=== PATIENT | male | born 1940 ===

== ENCOUNTER 2020-06-28 21:46 | Inpatient (IN) | payer MEDICARE, OTHER ==
[~2020-06-28] VITALS: Ht 165.1 cm; Wt 111.6 kg
[2020-06-28] MEDS ORDERED: INSU100V39 (21:59)
[2020-06-28] MEDS ORDERED: INSU100V7 SQ (21:59)
[2020-06-28] MEDS ORDERED: ESCI20TA44 PO (21:59)
[2020-06-28] MEDS ORDERED: CLON1TAB12 PO (21:59)
[2020-06-28] MEDS ORDERED: OLANZAPINE 5 MG TABLET PO ONE (22:00)
[2020-06-28] MEDS ORDERED: OLANZAPINE 5 MG TABLET ONE (22:09)
[2020-06-28] MEDS ORDERED: ASPI81TA31 PO (22:28)
[2020-06-28] MEDS ORDERED: ATOR20TA PO (22:28)
[2020-06-28] MEDS ORDERED: QUET100T PO (22:28)
[2020-06-28] MEDS ORDERED: LISI10TA29 PO (22:28)
[2020-06-28] MEDS ORDERED: FURO-151 PO (22:28)
[2020-06-28] MEDS ORDERED: METO25TA6 PO (22:28)
[2020-06-28] MEDS ORDERED: TAMS0.4C34 PO (22:30)
[2020-06-28] MEDS ORDERED: METF-442 PO (22:30)
[2020-06-28] MEDS ORDERED: POTA20TA10 PO (22:30)
[2020-06-28] MEDS ORDERED: CLOP75TA15 PO (22:30)
--- NOTE | 2020-06-28 23:49 | NUR ---
transfered to MHU via wheelchair
[2020-06-28 23:55] VITALS: BP 149/70
[2020-06-29] MEDS ORDERED: LORAZEPAM 0.5 MG TABLET PO PRN
[2020-06-29] MEDS ORDERED: DEXTROSE 50% 50 ML DISP.SYRIN IV PRN
[2020-06-29] MEDS ORDERED: MAG HYDROX/AL HYDROX/SIMETH 30 ML LIQUID UDC PO PRN
[2020-06-29] MEDS ORDERED: BLOOD SUGAR DIAGNOSTIC 1 EACH STRIP VI ONE
[2020-06-29] MEDS ORDERED: MAGNESIUM HYDROXIDE 30 ML LIQUID UDC PO PRN
[2020-06-29] MEDS: TEMAZEPAM 7.5 MG CAPSULE PO PRN (00:38)
--- NOTE | 2020-06-29 01:33 | NUR ---
PATIENT RECEIVED VIA WHEEL CHAIR FROM ER AT 2350. THE PATIENT IS ALERT/ORIENTED X2 WITH CONFUSION, AGITATED, HYPERVERBAL, EASILY IRRITABLE, AND RESTLESS. THE PATIENT STATED RECEIVED INFLUENZA VACCINE AND WOULD LIKE TO HAVE THE PNEUMOCOCCAL VACCINE. THE PATIENT REFUSED TO SIGN ADMITTING FORMS BECAME AGITATED. THE PATIENT RECEIVED ADVISEMENT AND PATIENT RIGHTS HANDBOOK. THE PATIENT WAS CHECKED FOR CONTRABAND AND BODY ASSESSMENT RENDERED WITH SKIN INTACT. THE PATIENT WAS CHANGED INTO HOSPITAL GOWN AND ORIENTED TO ROOM. SAFE ENVIRONMENT PROVIDED, FREQUENT ROUNDING, AND CLUTTER FREE ENVIRONMENT. BED IN LOWEST POSITION, BED LOCKED, AND BED ALARM ON WHILE IN BED. PT ORDERED UNSTEADY GAIT AND HISTORY OF FALLS.
[2020-06-29] MEDS: BLOOD SUGAR DIAGNOSTIC 1 EACH STRIP VI SCH ×4 (06:32→20:56)
--- NOTE | 2020-06-29 07:07 | NUR ---
SPOKE WITH PATIENT'S IRVIN SALINAS REGARDING ELOY DANIELSONET. PATIENT DID NOT HAVE WALLET UPON ADMISSION. THE PATIENT'S CALLED [facility] IN [place] AND WAS TOLD THAT ELOY'S WALLET WAS IN THEIR SAFE AND SHE WAS NOT ALLOWED TO PARTS SALVAGER HER HUSBANDS WALLET. THE WILL FOLLOW UP WITH [facility].
[2020-06-29 07:30] VITALS: BP 133/72
[2020-06-29] MEDS: POTASSIUM CHLORIDE 20 MEQ TAB.PRT.SR PO SCH (08:00)
[2020-06-29] MEDS: METFORMIN HCL 500 MG TABLET PO SCH ×2 (08:00→17:18)
[2020-06-29] MEDS: CLOPIDOGREL 75 MG TABLET PO SCH (08:00)
[2020-06-29] MEDS: ASPIRIN 81 MG TAB.CHEW PO SCH (08:00)
[2020-06-29] MEDS: METOPROLOL TARTRATE 25 MG TABLET PO SCH ×2 (08:01→20:50)
[2020-06-29] MEDS ORDERED: LISINOPRIL 10 MG TABLET PO SCH (09:00)
[2020-06-29] MEDS ORDERED: FUROSEMIDE 40 MG TABLET PO SCH (09:00)
[2020-06-29] MEDS: INSULIN REGULAR, HUMAN 300 UNITS/3 ML VIAL SQ PRN ×2 (09:33→20:58)
[2020-06-29] MEDS: NEOMY/BACITRAC/POLYMI OINT 28.35 GM TUBE TOP SCH (11:17)
[2020-06-29 12:04] LABS: ALANINE AMINOTRANSFERASE 24 U/L (16-63); ALKALINE PHOSPHATASE 97 U/L (50-136); ASPARTATE AMINOTRANSFERASE 29 U/L (15-37); BILIRUBIN,TOTAL 0.5 mg/dL (0.2-1.0); CARBON DIOXIDE 27 mmol/L (21-32); CHLORIDE 101 mmol/L (98-107); CHOLESTEROL 122 mg/dL (<200); CREATININE 1.5 mg/dL (0.6-1.3); GLUCOSE 216 mg/dL (74-106); HDL CHOLESTEROL 62 mg/dL (40-60); POTASSIUM 4.6 mmol/L (3.5-5.1); TOTAL PROTEIN, SERUM 7.3 g/dL (6.4-8.2); TRIGLYCERIDES 82 MG/DL (30-150); UREA NITROGEN, BLOOD 31 mg/dL (7-18)
--- NOTE | 2020-06-29 16:05 | NUR ---
Family Contact: SW called the pts , Leigh Ann ([phone]), who stated that the pt cannot return to their home due to his aggression. Pts stated that they are attempting to secure placement for the pt at [facility]. SW stated to inform her if they need any assistance.
[2020-06-29] MEDS: CLONAZEPAM 0.5 MG TABLET PO PRN (16:08)
[2020-06-29] MEDS: ESCITALOPRAM OXALATE 10 MG TABLET PO SCH (16:10)
--- NOTE | 2020-06-29 16:19 | NUR ---
Initial Discharge Plan: Pt currently resides at home with his , Leigh Ann ([phone]), located at [address] [place] [address] [place] [address]. Per pts , she does not want the pt to return to his home. BARRINGTON will work with the pt and the MD regarding appropriate discharge planning. BARRINGTON will form a safe and proper discharge. Addendum: 06/30/20 at 1610 by BARRINGTON BLAND PTS GOES BY ELIU
[2020-06-29 16:45] VITALS: BP 127/68
--- NOTE | 2020-06-29 17:56 | NUR ---
received patient AOx1-2, ambulatory, patient appears to be anxious, easily irritable, threatening staff, patient was upset regarding his wallet, patient wallet was in [facility] in [place] and rigoberto is aware and will picked it up , patientwas asleep in the afternoon but started to get anxious and threatening, educated patient about behavior and the hold, gave oral prn and patient started to calm down , patient refused accucheck and verbalizes that his tired about everything, seen and examined by Dr. Garvin ,new orders made and carried out , monitored [id number] for safety , will continue monitor
[2020-06-29 20:00] VITALS: BP 114/72
[2020-06-29] MEDS: QUETIAPINE FUMARATE 100 MG TABLET PO SCH (20:49)
[2020-06-29] MEDS: TAMSULOSIN HCL 0.4 MG CAP.SR.24H PO SCH (20:49)
[2020-06-29] MEDS ORDERED: ATORVASTATIN 20 MG TABLET PO SCH (21:00)
--- NOTE | 2020-06-30 06:22 | NUR ---
GPS: REMAIN CALM AND COOPERATIVE WITH MEDS AND CARE. NO AGITATION NOTED. SLEPT 8.30 HRS THROUGH THE NIGHT. ASSISTED WITH ADL'S.
[2020-06-30] MEDS: BLOOD SUGAR DIAGNOSTIC 1 EACH STRIP VI SCH ×4 (06:34→20:22)
[2020-06-30 07:30] VITALS: BP 113/56
[2020-06-30] MEDS ORDERED: OLANZAPINE 10 MG VIAL IM ONE (07:45)
[2020-06-30] MEDS: POTASSIUM CHLORIDE 20 MEQ TAB.PRT.SR PO SCH (08:23)
[2020-06-30] MEDS: QUETIAPINE FUMARATE 100 MG TABLET PO SCH ×2 (08:23→20:19)
[2020-06-30] MEDS: FUROSEMIDE 20 MG TABLET PO SCH (08:23)
[2020-06-30] MEDS: ESCITALOPRAM OXALATE 10 MG TABLET PO SCH (08:23)
[2020-06-30] MEDS: ASPIRIN 81 MG TAB.CHEW PO SCH (08:23)
[2020-06-30] MEDS: METOPROLOL TARTRATE 25 MG TABLET PO SCH ×2 (08:25→20:20)
[2020-06-30] MEDS: CLOPIDOGREL 75 MG TABLET PO SCH (08:27)
[2020-06-30] MEDS: NEOMY/BACITRAC/POLYMI OINT 28.35 GM TUBE TOP SCH (08:27)
--- NOTE | 2020-06-30 09:07 | NUR ---
Firearms Report: Tile Decorator completed and submitted a DOJ firearms report for 5150 danger to others certification. A copy of report has been placed in patient chart.
[2020-06-30] MEDS: INSULIN REGULAR, HUMAN 300 UNIT/3 ML VIAL SQ PRN ×2 (11:41→16:20)
[2020-06-30] MEDS: CLONAZEPAM 0.5 MG TABLET PO PRN (15:57)
[2020-06-30 16:39] VITALS: BP 99/61
[2020-06-30] MEDS: DIVALPROEX 250 MG TABLET.DR PO SCH ×2 (18:49→20:26)
[2020-06-30 20:15] VITALS: BP 140/79
[2020-06-30] MEDS: ATORVASTATIN 10 MG TABLET PO SCH (20:19)
[2020-06-30] MEDS: TAMSULOSIN HCL 0.4 MG CAP.SR.24H PO SCH (20:19)
[2020-06-30] MEDS: INSULIN REGULAR, HUMAN 300 UNITS/3 ML VIAL SQ PRN (20:25)
--- NOTE | 2020-06-30 22:19 | NUR ---
OOB in chair upon initial rounds. Patient compliant with meds. Accucheck @ 2100 142 with 2units humalog given as coverage. No behavioral issues noted. Will monitor patient. Attended to needs. No acute distress noted. VSS.
[2020-07-01] MEDS: BLOOD SUGAR DIAGNOSTIC 1 EACH STRIP VI SCH ×4 (06:32→20:10)
--- NOTE | 2020-07-01 06:57 | NUR ---
Slept well. OOB to the BR. Voiding well. No complaints presented so far. No behavioral issues noted. Accucheck 201 this am. Will monitor.
[2020-07-01 07:30] VITALS: BP 158/72
[2020-07-01] MEDS: CLONAZEPAM 0.5 MG TABLET PO PRN ×3 (07:50→20:40)
[2020-07-01] MEDS: NEOMY/BACITRAC/POLYMI OINT 28.35 GM TUBE TOP SCH (09:00)
[2020-07-01] MEDS: QUETIAPINE FUMARATE 100 MG TABLET PO SCH ×2 (09:26→20:07)
[2020-07-01] MEDS: METOPROLOL TARTRATE 25 MG TABLET PO SCH ×2 (09:26→20:08)
[2020-07-01] MEDS: ASPIRIN 81 MG TAB.CHEW PO SCH (09:26)
[2020-07-01] MEDS: FUROSEMIDE 20 MG TABLET PO SCH (09:26)
[2020-07-01] MEDS: CLOPIDOGREL 75 MG TABLET PO SCH (09:26)
[2020-07-01] MEDS: DIVALPROEX 250 MG TABLET.DR PO SCH ×3 (09:27→20:07)
[2020-07-01] MEDS: POTASSIUM CHLORIDE 20 MEQ TAB.PRT.SR PO SCH (09:28)
[2020-07-01] MEDS: ESCITALOPRAM OXALATE 10 MG TABLET PO SCH (09:28)
[2020-07-01] MEDS: INSULIN REGULAR, HUMAN 300 UNIT/3 ML VIAL SQ PRN ×3 (10:11→17:52)
[2020-07-01 16:00] VITALS: BP 118/74
--- NOTE | 2020-07-01 18:21 | NUR ---
received patient AOx1-2, ambulatory, patient appears to be anxious, easily irritable, patient was upset regarding his luggage where about, informed patient that his belongings is in the locker for safe keeping, that he will have it when discharged. He is anxious and redirected to write his concerned, gave oral prn and patient started to calm down. patient complaint with medication. seen by Christina SPARKS, new orders made and carried out, monitored [id number] for safety , will continue monitoring
[2020-07-01 19:30] VITALS: BP 139/73
[2020-07-01] MEDS: TAMSULOSIN HCL 0.4 MG CAP.SR.24H PO SCH (20:07)
[2020-07-01] MEDS: ATORVASTATIN 10 MG TABLET PO SCH (20:08)
[2020-07-01] MEDS: INSULIN REGULAR, HUMAN 300 UNITS/3 ML VIAL SQ PRN (20:12)
--- NOTE | 2020-07-01 22:11 | NUR ---
received patient pacing back and forth anxious and very irritable. Verbalized that he wants to kill himself, and he's tired of asking everybody for favors. Patient redirected, reoriented. Compliant with meds. PRN Klonopin given. Will monitor patient. MD aware. Patient monitored q 15 minutes for safety. Kept comfortable.
[2020-07-01] MEDS: TEMAZEPAM 7.5 MG CAPSULE PO PRN (23:27)
--- NOTE | 2020-07-02 06:30 | NUR ---
patient slept for 3 1/2 hours through the night. Patient monitored q 15 minutes for safety. Accucheck this am 206. No signs of agitation or restlessness noted.
[2020-07-02] MEDS: BLOOD SUGAR DIAGNOSTIC 1 EACH STRIP VI SCH ×4 (06:33→20:38)
[2020-07-02] MEDS: INSULIN REGULAR, HUMAN 300 UNIT/3 ML VIAL SQ PRN ×3 (07:55→16:56)
[2020-07-02 08:04] VITALS: BP_SYST 137
[2020-07-02 08:05] VITALS: BP 137/73
[2020-07-02] MEDS: CLOPIDOGREL 75 MG TABLET PO SCH (08:06)
[2020-07-02] MEDS: QUETIAPINE FUMARATE 100 MG TABLET PO SCH ×2 (08:06→20:38)
[2020-07-02] MEDS: ESCITALOPRAM OXALATE 10 MG TABLET PO SCH (08:06)
[2020-07-02] MEDS: glipiZIDE 5 MG TABLET PO SCH ×2 (08:07→16:17)
[2020-07-02] MEDS: DIVALPROEX 250 MG TABLET.DR PO SCH ×3 (08:07→20:36)
[2020-07-02] MEDS: METOPROLOL TARTRATE 25 MG TABLET PO SCH ×2 (08:07→20:37)
[2020-07-02] MEDS: POTASSIUM CHLORIDE 20 MEQ TAB.PRT.SR PO SCH (08:07)
[2020-07-02] MEDS: FUROSEMIDE 20 MG TABLET PO SCH (08:07)
[2020-07-02] MEDS: ASPIRIN 81 MG TAB.CHEW PO SCH (08:07)
[2020-07-02] MEDS: NEOMY/BACITRAC/POLYMI OINT 28.35 GM TUBE TOP SCH (08:08)
[2020-07-02 08:24] LABS: THYROID STIMULATING HORMONE 1.076 mIU/mL (0.358-3.740)
[2020-07-02 08:32] LABS: BASOPHILS # (AUTO) 0.1 K/uL (0.0-8.0); BASOPHILS % (AUTO) 1.1 % (0.0-2.0); EOSINOPHILS # (AUTO) 0.6 K/uL (0.0-0.7); EOSINOPHILS % (AUTO) 7.9 % (0.0-7.0); HEMATOCRIT 41.4 % (36.7-47.1); HEMOGLOBIN 13.8 g/dL (12.5-16.3); LYMPHOCYTES # (AUTO) 2.6 K/uL (20.0-40.0); LYMPHOCYTES % (AUTO) 34.3 % (20.5-51.5); MEAN CORPUSCULAR HEMOGLOBIN 29.8 uug (23.8-33.4); MEAN CORPUSCULAR HGB CONC 34 g/dL (32.5-36.3); MONOCYTES # (AUTO) 0.8 K/uL (2.0-10.0); MONOCYTES % (AUTO) 10.9 % (0.0-11.0); NEUTROPHILS # (AUTO) 3.5 K/uL (1.8-8.9); NEUTROPHILS % (AUTO) 45.8 % (38.5-71.5); PLATELET COUNT (AUTO) 332 K/uL (152-348); RED BLOOD CELL COUNT(AUTO) 4.64 MIL/uL (4.06-5.63); WHITE BLOOD COUNT (AUTO) 7.6 K/uL (3.6-10.2)
--- NOTE | 2020-07-02 08:51 | NUR ---
PT NOTED EASILY IRRITABLE AND AGITATED AT TIMES. FREQUENTLY AT NURSES STATION. PARANOID AND DELUSIONAL. REQUESTING NUMBERS TO "[facility]" AND "[facility]" TO AIR HIS GRIEVANCES. BELIEVES STAFF STOLE HIS BELONGINGS. REDIRECTED FREQUENTLY.
[2020-07-02 09:05] LABS: ALANINE AMINOTRANSFERASE 21 U/L (16-63); ALKALINE PHOSPHATASE 115 U/L (50-136); ASPARTATE AMINOTRANSFERASE 19 U/L (15-37); BILIRUBIN,TOTAL 0.5 mg/dL (0.2-1.0); CARBON DIOXIDE 29 mmol/L (21-32); CHLORIDE 103 mmol/L (98-107); CREATININE 1.7 mg/dL (0.6-1.3); GLUCOSE 217 mg/dL (74-106); MAGNESIUM 2.4 mg/dL (1.8-2.4); PHOSPHOROUS 3.7 mg/dL (2.5-4.9); POTASSIUM 4.6 mmol/L (3.5-5.1); TOTAL PROTEIN, SERUM 8.3 g/dL (6.4-8.2); UREA NITROGEN, BLOOD 32 mg/dL (7-18)
--- NOTE | 2020-07-02 15:00 | NUR ---
Gps/Mva Still Operator- Kept coming to the Nursing station, asking for the phone, wants to talked to his , informed pt. that per wifes' request, limit his calls to 2 x a /day . Gets demanding, needy l, tends to closed his door, discouraged from doing so, kept writing simple notes wants to give it to his . verbalized feelings of being depressed . Monitor behavior, reviewed safety
[2020-07-02 16:09] VITALS: BP 117/47
[2020-07-02 20:18] VITALS: BP 159/75
[2020-07-02] MEDS: ATORVASTATIN 10 MG TABLET PO SCH (20:36)
[2020-07-02] MEDS: TAMSULOSIN HCL 0.4 MG CAP.SR.24H PO SCH (20:36)
[2020-07-02] MEDS: INSULIN REGULAR, HUMAN 300 UNITS/3 ML VIAL SQ PRN (20:42)
[2020-07-02 22:00] VITALS: BP 128/77
[2020-07-03] MEDS: BLOOD SUGAR DIAGNOSTIC 1 EACH STRIP VI SCH ×4 (06:38→20:25)
--- NOTE | 2020-07-03 06:46 | NUR ---
GPS: REMAIN UNCOOPERATIVE WITH CARE. REFUSED SHOWER THIS MORNING. NO AGITATION NOTED. SLEPT 4.45 HRS THROUGH THE NIGHT. ASSISTED WITH ADL'S.CONTINUE PLAN OF CARE.
[2020-07-03] MEDS: glipiZIDE 5 MG TABLET PO SCH ×2 (06:54→17:07)
[2020-07-03 07:39] LABS: BASOPHILS # (AUTO) 0.1 K/uL (0.0-8.0); BASOPHILS % (AUTO) 0.8 % (0.0-2.0); EOSINOPHILS # (AUTO) 0.4 K/uL (0.0-0.7); EOSINOPHILS % (AUTO) 5.1 % (0.0-7.0); HEMATOCRIT 38.3 % (36.7-47.1); HEMOGLOBIN 12.9 g/dL (12.5-16.3); LYMPHOCYTES # (AUTO) 1.8 K/uL (20.0-40.0); LYMPHOCYTES % (AUTO) 25.3 % (20.5-51.5); MEAN CORPUSCULAR HEMOGLOBIN 29.7 uug (23.8-33.4); MEAN CORPUSCULAR HGB CONC 34 g/dL (32.5-36.3); MEAN CORPUSCULAR VOLUME 88.4 fL (73.0-96.2); MONOCYTES # (AUTO) 0.7 K/uL (2.0-10.0); MONOCYTES % (AUTO) 10.4 % (0.0-11.0); NEUTROPHILS # (AUTO) 4.1 K/uL (1.8-8.9); NEUTROPHILS % (AUTO) 58.4 % (38.5-71.5); PLATELET COUNT (AUTO) 313 K/uL (152-348); RED BLOOD CELL COUNT(AUTO) 4.33 MIL/uL (4.06-5.63); WHITE BLOOD COUNT (AUTO) 7.1 K/uL (3.6-10.2)
[2020-07-03 07:57] VITALS: BP 132/62
[2020-07-03 08:03] LABS: ALANINE AMINOTRANSFERASE 19 U/L (16-63); ALKALINE PHOSPHATASE 103 U/L (50-136); ASPARTATE AMINOTRANSFERASE 15 U/L (15-37); BILIRUBIN,TOTAL 0.6 mg/dL (0.2-1.0); CARBON DIOXIDE 26 mmol/L (21-32); CHLORIDE 104 mmol/L (98-107); CREATININE 1.5 mg/dL (0.6-1.3); GLUCOSE 198 mg/dL (74-106); MAGNESIUM 2.1 mg/dL (1.8-2.4); PHOSPHOROUS 3.2 mg/dL (2.5-4.9); POTASSIUM 4.7 mmol/L (3.5-5.1); TOTAL PROTEIN, SERUM 7.6 g/dL (6.4-8.2); UREA NITROGEN, BLOOD 24 mg/dL (7-18)
[2020-07-03] MEDS ORDERED: ESCITALOPRAM OXALATE 10 MG TABLET PO SCH (09:00)
[2020-07-03] MEDS: CLONAZEPAM 0.5 MG TABLET PO PRN ×2 (09:17→17:07)
[2020-07-03] MEDS: ASPIRIN 81 MG TAB.CHEW PO SCH (09:17)
[2020-07-03] MEDS: QUETIAPINE FUMARATE 100 MG TABLET PO SCH ×2 (09:18→20:17)
[2020-07-03] MEDS: CLOPIDOGREL 75 MG TABLET PO SCH (09:18)
[2020-07-03] MEDS: DIVALPROEX 250 MG TABLET.DR PO SCH ×2 (09:18→20:18)
[2020-07-03] MEDS: POTASSIUM CHLORIDE 20 MEQ TAB.PRT.SR PO SCH (09:18)
[2020-07-03] MEDS: NEOMY/BACITRAC/POLYMI OINT 28.35 GM TUBE TOP SCH (09:21)
[2020-07-03] MEDS: FUROSEMIDE 20 MG TABLET PO SCH (09:21)
[2020-07-03] MEDS: METOPROLOL TARTRATE 25 MG TABLET PO SCH ×2 (09:21→20:19)
[2020-07-03] MEDS: INSULIN REGULAR, HUMAN 300 UNIT/3 ML VIAL SQ PRN ×3 (09:23→17:09)
--- NOTE | 2020-07-03 11:28 | NUR ---
Family Contact: SW called the patient's , Leigh Ann Shell) ([phone]) to discuss discharge planning and request an update on placement. Phone keeps ringing.
--- NOTE | 2020-07-03 15:10 | NUR ---
[facility]: BARRINGTON called and left a message for the referral coordinator Nusrat ([phone]) for a return call.
[2020-07-03 16:14] VITALS: BP 130/74
[2020-07-03] MEDS: TAMSULOSIN HCL 0.4 MG CAP.SR.24H PO SCH (20:18)
[2020-07-03] MEDS: ATORVASTATIN 10 MG TABLET PO SCH (20:19)
[2020-07-03 20:24] VITALS: BP 134/74
[2020-07-04] MEDS: BLOOD SUGAR DIAGNOSTIC 1 EACH STRIP VI SCH ×4 (06:30→20:26)
--- NOTE | 2020-07-04 06:51 | NUR ---
Received Pt in the day room socializing with his peers. A+Ox2, poor insight into the situation and need for psychiatric intervention. Pt is labile, easily irritable, and delusional. Compliant with medications with prompting. Appears suspicious of staff and paranoid of medications. Yells and screams at staff unprovoked, and is demanding with the telephone, water, snacks, and personal items, frequent redirection provided. Denies SI and contracts for safety.VS stable, denies pain. HS BS 120, AM BS 214.
[2020-07-04 07:30] VITALS: BP 152/73
[2020-07-04] MEDS: CLOPIDOGREL 75 MG TABLET PO SCH (08:25)
[2020-07-04] MEDS: glipiZIDE 5 MG TABLET PO SCH ×2 (08:25→17:34)
[2020-07-04] MEDS: DIVALPROEX 250 MG TABLET.DR PO SCH ×2 (08:25→20:26)
[2020-07-04] MEDS: FUROSEMIDE 20 MG TABLET PO SCH (08:25)
[2020-07-04] MEDS: POTASSIUM CHLORIDE 20 MEQ TAB.PRT.SR PO SCH (08:25)
[2020-07-04] MEDS: ASPIRIN 81 MG TAB.CHEW PO SCH (08:25)
[2020-07-04] MEDS: METOPROLOL TARTRATE 25 MG TABLET PO SCH ×2 (08:26→20:25)
[2020-07-04] MEDS: QUETIAPINE FUMARATE 100 MG TABLET PO SCH ×2 (09:34→20:25)
[2020-07-04] MEDS: NEOMY/BACITRAC/POLYMI OINT 28.35 GM TUBE TOP SCH (09:36)
--- NOTE | 2020-07-04 12:19 | NUR ---
[facility] SNF Referral: BARRINGTON called [facility] and spoke to admissions counselor Lavinia and faxed her the patient's referral packet for review. Addendum: 07/05/20 at 0955 by DEB HUTCHISON Patient is not accepted at the facility due to behaviors.
[2020-07-04] MEDS: INSULIN REGULAR, HUMAN 300 UNIT/3 ML VIAL SQ PRN ×2 (12:30→17:06)
[2020-07-04] MEDS: CLONAZEPAM 0.5 MG TABLET PO PRN (15:00)
[2020-07-04 15:25] VITALS: BP 147/84
[2020-07-04 20:09] VITALS: BP 146/78
[2020-07-04] MEDS: ATORVASTATIN 10 MG TABLET PO SCH (20:25)
[2020-07-04] MEDS: TAMSULOSIN HCL 0.4 MG CAP.SR.24H PO SCH (20:26)
[2020-07-04] MEDS: INSULIN REGULAR, HUMAN 300 UNITS/3 ML VIAL SQ PRN (21:37)
[2020-07-05] MEDS: BLOOD SUGAR DIAGNOSTIC 1 EACH STRIP VI SCH ×4 (06:50→20:18)
[2020-07-05 07:30] VITALS: BP 124/52
--- NOTE | 2020-07-05 07:30 | NUR ---
received patient AOx1, confused, disoriented, patient been walking back and forth to the nursing station verbalizing that he lost his wallet and his treated unfair, patient was redirected and re oriented all the time , patient was redirectable and was able to calm the patient down, patient on monitoring [id number] for safety
[2020-07-05] MEDS: glipiZIDE 5 MG TABLET PO SCH ×2 (07:52→16:30)
[2020-07-05] MEDS: INSULIN REGULAR, HUMAN 300 UNIT/3 ML VIAL SQ PRN ×2 (07:54→11:33)
[2020-07-05] MEDS: ASPIRIN 81 MG TAB.CHEW PO SCH (08:09)
[2020-07-05] MEDS: FUROSEMIDE 20 MG TABLET PO SCH (08:10)
[2020-07-05] MEDS: DIVALPROEX 250 MG TABLET.DR PO SCH ×2 (08:10→20:15)
[2020-07-05] MEDS: METOPROLOL TARTRATE 25 MG TABLET PO SCH ×2 (08:10→20:15)
[2020-07-05] MEDS: CLOPIDOGREL 75 MG TABLET PO SCH (08:10)
[2020-07-05] MEDS: NEOMY/BACITRAC/POLYMI OINT 28.35 GM TUBE TOP SCH (08:19)
[2020-07-05] MEDS: Z GUARD REMEDY PASTE 57 GM TUBE TOP SCH ×2 (08:27→20:18)
[2020-07-05] MEDS: QUETIAPINE FUMARATE 100 MG TABLET PO SCH ×2 (08:27→20:16)
[2020-07-05] MEDS: POTASSIUM CHLORIDE 20 MEQ TAB.PRT.SR PO SCH (08:27)
--- NOTE | 2020-07-05 08:36 | NUR ---
Family Contact: SW called the patient's , Leigh Ann Shell) ([phone]) to discuss discharge planning and request an update on placement. Left a message.
[2020-07-05] MEDS: CLONAZEPAM 0.5 MG TABLET PO PRN (09:18)
--- NOTE | 2020-07-05 09:53 | NUR ---
Family Contact: SW called the patient's , Leigh Ann Shell) at a different number ([phone]) to discuss discharge planning and request an update on placement. Unable to leave a message mailbox full.
--- NOTE | 2020-07-05 10:11 | NUR ---
[facility] SNF Referral: BARRINGTON faxed patient's referral packet to [facility] attention to Gabi admin coordinator. Addendum: 07/05/20 at 1030 by DEB HUTCHISON Patient is accepted for placement.
--- NOTE | 2020-07-05 12:00 | NUR ---
Court Hearing: Patient's court hearing was held today and it was upheld for GD and danger to others.
--- NOTE | 2020-07-05 12:47 | NUR ---
WOUND CARE CONSULT: PER SKOOG MACHINE OPERATOR, PT ALREADY TREATED BY PMD AND SCROTAL RASH IS IMPROVING WITH ANTIFUNGAL. WILL SEE PRN.
[2020-07-05 15:52] VITALS: BP 118/77
--- NOTE | 2020-07-05 16:05 | NUR ---
patient blood sugar reading a=is at 42, patient is alert, and able to swallow, gave orange juice and will re check blood sugar in 15minutes, no sign of distress, instructed the patient to stay in his bed for awhile
[2020-07-05] MEDS: CLOTRIMAZOLE 1% CREAM 30 GM TUBE TOP SCH (16:08)
--- NOTE | 2020-07-05 16:59 | NUR ---
rechecked patient blood sugar, after giving orange juice, , now reading at 101, no sign of distress, patient was sitting in edy chair, and tiffany waiting for dinner, withheld glipizide this afternoon per MD order, will continue monitor
[2020-07-05] MEDS: INSULIN REGULAR, HUMAN 300 UNITS/3 ML VIAL SQ PRN (20:13)
[2020-07-05] MEDS: ATORVASTATIN 10 MG TABLET PO SCH (20:15)
[2020-07-05] MEDS: TAMSULOSIN HCL 0.4 MG CAP.SR.24H PO SCH (20:45)
[2020-07-05 21:14] VITALS: BP 140/70
--- NOTE | 2020-07-06 05:24 | NUR ---
Received patient in the [facility], siva, med compliant. AO x 2. Patient will remain in a psych facility for further evaluation and treatment.
[2020-07-06] MEDS: glipiZIDE 5 MG TABLET PO SCH ×2 (06:38→16:30)
[2020-07-06] MEDS: BLOOD SUGAR DIAGNOSTIC 1 EACH STRIP VI SCH ×4 (06:39→20:06)
[2020-07-06 07:30] VITALS: BP 159/94
[2020-07-06 07:35] LABS: BASOPHILS % (AUTO) 0.8 % (0.0-2.0); EOSINOPHILS # (AUTO) 0.5 K/uL (0.0-0.7); EOSINOPHILS % (AUTO) 7.3 % (0.0-7.0); HEMATOCRIT 40.4 % (36.7-47.1); HEMOGLOBIN 13.4 g/dL (12.5-16.3); LYMPHOCYTES # (AUTO) 1.3 K/uL (20.0-40.0); LYMPHOCYTES % (AUTO) 20.4 % (20.5-51.5); MEAN CORPUSCULAR HEMOGLOBIN 29.6 uug (23.8-33.4); MEAN CORPUSCULAR HGB CONC 33 g/dL (32.5-36.3); MONOCYTES # (AUTO) 0.7 K/uL (2.0-10.0); MONOCYTES % (AUTO) 11.3 % (0.0-11.0); NEUTROPHILS # (AUTO) 3.8 K/uL (1.8-8.9); NEUTROPHILS % (AUTO) 60.2 % (38.5-71.5); PLATELET COUNT (AUTO) 299 K/uL (152-348); RED BLOOD CELL COUNT(AUTO) 4.54 MIL/uL (4.06-5.63); WHITE BLOOD COUNT (AUTO) 6.4 K/uL (3.6-10.2)
[2020-07-06] MEDS: CLONAZEPAM 0.5 MG TABLET PO PRN (07:51)
[2020-07-06 07:52] LABS: CREATININE 1.3 mg/dL (0.6-1.3); POTASSIUM 4.4 mmol/L (3.5-5.1)
[2020-07-06] MEDS: DIVALPROEX 250 MG TABLET.DR PO SCH ×2 (08:22→20:00)
[2020-07-06] MEDS: QUETIAPINE FUMARATE 100 MG TABLET PO SCH ×2 (08:23→20:00)
[2020-07-06] MEDS: FUROSEMIDE 20 MG TABLET PO SCH (08:23)
[2020-07-06] MEDS: ASPIRIN 81 MG TAB.CHEW PO SCH (08:23)
[2020-07-06] MEDS: METOPROLOL TARTRATE 25 MG TABLET PO SCH ×2 (08:23→20:01)
[2020-07-06] MEDS: CLOPIDOGREL 75 MG TABLET PO SCH (08:23)
[2020-07-06] MEDS: POTASSIUM CHLORIDE 20 MEQ TAB.PRT.SR PO SCH (08:23)
[2020-07-06] MEDS: CLOTRIMAZOLE 1% CREAM 30 GM TUBE TOP SCH ×2 (08:24→16:30)
[2020-07-06] MEDS: NEOMY/BACITRAC/POLYMI OINT 28.35 GM TUBE TOP SCH (08:24)
[2020-07-06] MEDS: Z GUARD REMEDY PASTE 57 GM TUBE TOP SCH ×2 (08:24→20:01)
--- NOTE | 2020-07-06 11:06 | NUR ---
Family Contact: SW received a call back from patient's , Leigh Ann (Kaitlynn) ([phone]) and was able to discuss patient's discharge plan. Kaitlynn was agreeable with patient going to [facility] upon discharge.
[2020-07-06] MEDS: INSULIN REGULAR, HUMAN 300 UNIT/3 ML VIAL SQ PRN ×2 (11:45→16:41)
[2020-07-06 16:46] VITALS: BP 126/62
[2020-07-06] MEDS: TAMSULOSIN HCL 0.4 MG CAP.SR.24H PO SCH (20:00)
[2020-07-06] MEDS: ATORVASTATIN 10 MG TABLET PO SCH (20:00)
[2020-07-06 20:11] VITALS: BP 140/71
[2020-07-06] MEDS: INSULIN REGULAR, HUMAN 300 UNITS/3 ML VIAL SQ PRN (20:37)
[2020-07-07] MEDS: BLOOD SUGAR DIAGNOSTIC 1 EACH STRIP VI SCH ×4 (06:33→20:39)
[2020-07-07 07:30] VITALS: BP 141/76
--- NOTE | 2020-07-07 07:30 | NUR ---
received patient calm compliant, patient is quiet in his room denies Si and HI, having irritable moods and focused of going home, patient assisted with ADL was put on monitoring for safety/awol risk and fall risk
[2020-07-07] MEDS: glipiZIDE 5 MG TABLET PO SCH ×2 (07:36→16:40)
[2020-07-07] MEDS: FUROSEMIDE 20 MG TABLET PO SCH (08:17)
[2020-07-07] MEDS: QUETIAPINE FUMARATE 100 MG TABLET PO SCH ×4 (08:18→20:40)
[2020-07-07] MEDS: CLOPIDOGREL 75 MG TABLET PO SCH (08:18)
[2020-07-07] MEDS: METOPROLOL TARTRATE 25 MG TABLET PO SCH ×2 (08:18→20:41)
[2020-07-07] MEDS: CLOTRIMAZOLE 1% CREAM 30 GM TUBE TOP SCH ×2 (08:19→16:49)
[2020-07-07] MEDS: Z GUARD REMEDY PASTE 57 GM TUBE TOP SCH ×2 (08:19→20:42)
[2020-07-07] MEDS: POTASSIUM CHLORIDE 20 MEQ TAB.PRT.SR PO SCH (08:20)
[2020-07-07] MEDS: ASPIRIN 81 MG TAB.CHEW PO SCH (08:20)
[2020-07-07] MEDS: NEOMY/BACITRAC/POLYMI OINT 28.35 GM TUBE TOP SCH (08:20)
[2020-07-07] MEDS: DIVALPROEX 500 MG TABLET.DR PO SCH ×2 (08:47→20:40)
[2020-07-07] MEDS: ACETAMINOPHEN 325 MG TABLET PO PRN (10:32)
[2020-07-07] MEDS: INSULIN REGULAR, HUMAN 300 UNIT/3 ML VIAL SQ PRN ×2 (11:38→16:43)
[2020-07-07] MEDS: CLONAZEPAM 0.5 MG TABLET PO PRN (13:42)
--- NOTE | 2020-07-07 15:28 | NUR ---
Individual Counseling: painting trades worker met with patient for brief counseling to help address patients presenting problem aggressive behavior. Patient presents irritable and agitated and refuses to engage in a conversation with this child welfare social worker at this time. SW will continue to be available for the patient and provide ongoing support.
[2020-07-07 15:55] VITALS: BP 90/46
--- NOTE | 2020-07-07 18:16 | NUR ---
patient been calm , cooperative, no sign of agitation , patient called on phone and spoke calmly this afternoon, patient compliant with care , monitored [id number] needs attended no sign of distress
[2020-07-07 20:14] VITALS: BP 105/56
[2020-07-07] MEDS: ATORVASTATIN 10 MG TABLET PO SCH (20:40)
[2020-07-07] MEDS: TAMSULOSIN HCL 0.4 MG CAP.SR.24H PO SCH (20:40)
[2020-07-07] MEDS: INSULIN REGULAR, HUMAN 300 UNITS/3 ML VIAL SQ PRN (20:43)
--- NOTE | 2020-07-08 06:22 | NUR ---
GPS: Remain calm and cooperative with meds and care. Denies Si and HI, having irritable moods and focused of going home, patient assisted with ADL. slept 6 hrs through the night. continue monitoring for safety/awol risk and fall risk
[2020-07-08] MEDS: BLOOD SUGAR DIAGNOSTIC 1 EACH STRIP VI SCH ×5 (06:41→20:12)
[2020-07-08 07:30] VITALS: BP 114/64
[2020-07-08] MEDS: FUROSEMIDE 20 MG TABLET PO SCH (08:41)
[2020-07-08] MEDS: POTASSIUM CHLORIDE 20 MEQ TAB.PRT.SR PO SCH (08:42)
[2020-07-08] MEDS: CLOPIDOGREL 75 MG TABLET PO SCH (08:42)
[2020-07-08] MEDS: ASPIRIN 81 MG TAB.CHEW PO SCH (08:42)
[2020-07-08] MEDS: QUETIAPINE FUMARATE 100 MG TABLET PO SCH ×4 (08:42→20:13)
[2020-07-08] MEDS: CLONAZEPAM 0.5 MG TABLET PO PRN ×2 (08:42→20:13)
[2020-07-08] MEDS: glipiZIDE 5 MG TABLET PO SCH ×2 (08:42→16:51)
[2020-07-08] MEDS: DIVALPROEX 500 MG TABLET.DR PO SCH ×2 (08:42→20:13)
[2020-07-08] MEDS: METOPROLOL TARTRATE 25 MG TABLET PO SCH ×2 (08:43→20:15)
[2020-07-08] MEDS: CLOTRIMAZOLE 1% CREAM 30 GM TUBE TOP SCH ×2 (09:03→16:52)
[2020-07-08] MEDS: Z GUARD REMEDY PASTE 57 GM TUBE TOP SCH ×2 (09:04→20:13)
[2020-07-08] MEDS: NEOMY/BACITRAC/POLYMI OINT 28.35 GM TUBE TOP SCH (09:04)
[2020-07-08] MEDS: ACETAMINOPHEN 325 MG TABLET PO PRN (13:41)
[2020-07-08 14:58] VITALS: BP 107/54
[2020-07-08] MEDS: INSULIN REGULAR, HUMAN 300 UNIT/3 ML VIAL SQ PRN (17:14)
[2020-07-08 20:11] VITALS: BP 112/62
[2020-07-08] MEDS: ATORVASTATIN 10 MG TABLET PO SCH (20:13)
[2020-07-08] MEDS: TAMSULOSIN HCL 0.4 MG CAP.SR.24H PO SCH (20:13)
[2020-07-08] MEDS: INSULIN REGULAR, HUMAN 300 UNITS/3 ML VIAL SQ PRN (20:17)
--- NOTE | 2020-07-09 04:36 | NUR ---
Received patient in bed, totally naked and refusing to were hospital gown. Assistive Technology Trainer offered some shorts from the donations and patient was agreeable to that. This patient has labile moods and can be anxious and easily irritated . Assistive Technology Trainer noticed patient is also forgetful . Monitoring closely for safety, and rounding done frequently. Redirection , distraction and assistance provided when needed. Patient denies SI and HI at this time. No acute distress.
[2020-07-09] MEDS: BLOOD SUGAR DIAGNOSTIC 1 EACH STRIP VI SCH ×4 (06:28→19:58)
[2020-07-09 07:30] VITALS: BP 144/72
[2020-07-09] MEDS: CLONAZEPAM 0.5 MG TABLET PO PRN ×2 (08:01→16:08)
[2020-07-09] MEDS: glipiZIDE 5 MG TABLET PO SCH ×2 (08:01→16:08)
[2020-07-09] MEDS: INSULIN REGULAR, HUMAN 300 UNIT/3 ML VIAL SQ PRN ×2 (08:03→16:25)
[2020-07-09] MEDS: DIVALPROEX 500 MG TABLET.DR PO SCH ×2 (08:25→20:35)
[2020-07-09] MEDS: POTASSIUM CHLORIDE 20 MEQ TAB.PRT.SR PO SCH (08:25)
[2020-07-09] MEDS: CLOPIDOGREL 75 MG TABLET PO SCH (08:25)
[2020-07-09] MEDS: ASPIRIN 81 MG TAB.CHEW PO SCH (08:25)
[2020-07-09] MEDS: FUROSEMIDE 20 MG TABLET PO SCH (08:25)
[2020-07-09] MEDS: QUETIAPINE FUMARATE 100 MG TABLET PO SCH ×4 (08:25→20:34)
[2020-07-09] MEDS: METOPROLOL TARTRATE 25 MG TABLET PO SCH ×2 (08:26→20:35)
[2020-07-09] MEDS: CLOTRIMAZOLE 1% CREAM 30 GM TUBE TOP SCH ×2 (08:26→16:08)
[2020-07-09] MEDS: NEOMY/BACITRAC/POLYMI OINT 28.35 GM TUBE TOP SCH (08:27)
[2020-07-09] MEDS: Z GUARD REMEDY PASTE 57 GM TUBE TOP SCH ×2 (08:27→20:36)
[2020-07-09 15:26] VITALS: BP 127/95
[2020-07-09 20:03] VITALS: BP 132/59
[2020-07-09] MEDS: INSULIN REGULAR, HUMAN 300 UNITS/3 ML VIAL SQ PRN (20:03)
[2020-07-09] MEDS: ATORVASTATIN 10 MG TABLET PO SCH (20:34)
[2020-07-09] MEDS: TAMSULOSIN HCL 0.4 MG CAP.SR.24H PO SCH (20:34)
[2020-07-09] MEDS: TEMAZEPAM 7.5 MG CAPSULE PO PRN (21:01)
[2020-07-10] MEDS: CLONAZEPAM 0.5 MG TABLET PO PRN ×3 (00:29→16:57)
--- NOTE | 2020-07-10 05:05 | NUR ---
Patient was up and down last night. Each time repeating the same thing over and over " I need my shoes but they lost them, and my cloths. God damn it, I am getting out of here ". Patient reoriented to the situation many times but is very forgetful and anxious. Petroleum Supply Specialist is unable to engage in any meaningful conversation without patient getting off track of the subject and ruminating on his lost belongings from the previous hospital. This patient is easily angered. Frequent rounds done during the shift to ensure safety and staff is providing assistance to the patient when needed.
[2020-07-10] MEDS: BLOOD SUGAR DIAGNOSTIC 1 EACH STRIP VI SCH ×4 (06:08→20:31)
[2020-07-10 07:10] LABS: BASOPHILS % (AUTO) 0.8 % (0.0-2.0); EOSINOPHILS # (AUTO) 0.3 K/uL (0.0-0.7); EOSINOPHILS % (AUTO) 4.9 % (0.0-7.0); HEMATOCRIT 40.8 % (36.7-47.1); HEMOGLOBIN 13.8 g/dL (12.5-16.3); LYMPHOCYTES # (AUTO) 1.6 K/uL (20.0-40.0); LYMPHOCYTES % (AUTO) 27.6 % (20.5-51.5); MEAN CORPUSCULAR HEMOGLOBIN 29.7 uug (23.8-33.4); MEAN CORPUSCULAR HGB CONC 34 g/dL (32.5-36.3); MEAN CORPUSCULAR VOLUME 87.7 fL (73.0-96.2); MONOCYTES # (AUTO) 0.7 K/uL (2.0-10.0); NEUTROPHILS % (AUTO) 53.7 % (38.5-71.5); PLATELET COUNT (AUTO) 336 K/uL (152-348); RED BLOOD CELL COUNT(AUTO) 4.66 MIL/uL (4.06-5.63); WHITE BLOOD COUNT (AUTO) 5.7 K/uL (3.6-10.2)
[2020-07-10 07:26] LABS: CARBON DIOXIDE 31 mmol/L (21-32); CHLORIDE 102 mmol/L (98-107); CREATININE 1.6 mg/dL (0.6-1.3); GLUCOSE 181 mg/dL (74-106); POTASSIUM 4.4 mmol/L (3.5-5.1); UREA NITROGEN, BLOOD 23 mg/dL (7-18)
[2020-07-10 07:30] VITALS: BP 111/72
[2020-07-10] MEDS: QUETIAPINE FUMARATE 100 MG TABLET PO SCH ×4 (08:26→20:24)
[2020-07-10] MEDS: glipiZIDE 5 MG TABLET PO SCH ×2 (08:26→16:57)
[2020-07-10] MEDS: DIVALPROEX 500 MG TABLET.DR PO SCH ×2 (08:27→20:24)
[2020-07-10] MEDS: ASPIRIN 81 MG TAB.CHEW PO SCH (08:27)
[2020-07-10] MEDS: POTASSIUM CHLORIDE 20 MEQ TAB.PRT.SR PO SCH (08:27)
[2020-07-10] MEDS: FUROSEMIDE 20 MG TABLET PO SCH (08:27)
[2020-07-10] MEDS: CLOPIDOGREL 75 MG TABLET PO SCH (08:27)
[2020-07-10] MEDS: METOPROLOL TARTRATE 25 MG TABLET PO SCH ×2 (08:28→20:24)
--- NOTE | 2020-07-10 08:48 | NUR ---
Firearms Report: Rock Singer completed and submitted a [employer] firearms report for 5150 grave disability certification. A copy of report has been placed in patient chart.
[2020-07-10] MEDS: CLOTRIMAZOLE 1% CREAM 30 GM TUBE TOP SCH ×2 (09:41→17:01)
[2020-07-10] MEDS: Z GUARD REMEDY PASTE 57 GM TUBE TOP SCH ×2 (09:42→20:24)
[2020-07-10] MEDS: NEOMY/BACITRAC/POLYMI OINT 28.35 GM TUBE TOP SCH (09:42)
[2020-07-10] MEDS: INSULIN REGULAR, HUMAN 300 UNIT/3 ML VIAL SQ PRN ×2 (12:21→16:58)
[2020-07-10 16:00] VITALS: BP 155/95
[2020-07-10] MEDS: ATORVASTATIN 10 MG TABLET PO SCH (20:23)
[2020-07-10 20:24] VITALS: BP 124/55
[2020-07-10] MEDS: TAMSULOSIN HCL 0.4 MG CAP.SR.24H PO SCH (20:24)
[2020-07-10] MEDS: INSULIN REGULAR, HUMAN 300 UNITS/3 ML VIAL SQ PRN (20:38)
[2020-07-10] MEDS: TEMAZEPAM 7.5 MG CAPSULE PO PRN (22:34)
[2020-07-11] MEDS: BLOOD SUGAR DIAGNOSTIC 1 EACH STRIP VI SCH ×2 (06:33→11:55)
[2020-07-11 07:30] VITALS: BP 133/74
--- NOTE | 2020-07-11 08:15 | NUR ---
BARRINGTON Discharge Note: Patient will be discharged to [facility] facility [facility] [place] [address] ([phone]) via Ambulance transportation at 1:00PM today. Ferryboat Helper spoke with PIYUSH, Community Relations Representative ([phone]) at facility and he confirmed that patient has been accepted at their facility today. Patient is alert and oriented x4. Patient is not able to plan for self-care at this time but is willing to accept care provided at the facility. Patient denies suicidal or homicidal ideation. Patient is aware and agreeable with discharge plans. Patient presents with appropriate mood and congruent affect. Patient will continue to follow-up with Psychiatrist Dr. Rosa and Airplane And Engine Inspector Dr. Bay at [facility]. Addendum: 07/11/20 at 0817 by DEB HUTCHISON INCORRECT DISCHARGE NOTE
[2020-07-11] MEDS: INSULIN REGULAR, HUMAN 300 UNIT/3 ML VIAL SQ PRN ×2 (08:16→13:59)
--- NOTE | 2020-07-11 08:17 | NUR ---
SW CORRECT DISCHARGE NOTE: Patient will be discharged back to [facility] [address] [place] [address] ([phone]) via ambulance. Patient will be transported by ambulance at 12pm. Spoke with Gabi admissions advisor at the facility who states they are ready to accept the patient today. Patient will follow-up at the facility with Dr. Martell Forestry Consultant and Dr. Garvin Psychiatrist. Patient is alert and oriented times 4, denies suicidal or homicidal ideation, and is aware and agreeable with discharge plans. Patient presents with appropriate mood and congruent affect. Patient is unable to plan for self-care at this time, however, is willing to accept care provided at the facility. Patients , Kaitlynn Garcia ([phone]) is aware and agreeable with discharge plans.
[2020-07-11] MEDS: FUROSEMIDE 20 MG TABLET PO SCH (08:21)
[2020-07-11] MEDS: glipiZIDE 5 MG TABLET PO SCH (08:21)
[2020-07-11] MEDS: CLOPIDOGREL 75 MG TABLET PO SCH (08:21)
[2020-07-11] MEDS: DIVALPROEX 500 MG TABLET.DR PO SCH (08:21)
[2020-07-11] MEDS: POTASSIUM CHLORIDE 20 MEQ TAB.PRT.SR PO SCH (08:21)
[2020-07-11] MEDS: QUETIAPINE FUMARATE 100 MG TABLET PO SCH ×2 (08:22→13:55)
[2020-07-11] MEDS: Z GUARD REMEDY PASTE 57 GM TUBE TOP SCH (08:22)
[2020-07-11] MEDS: CLOTRIMAZOLE 1% CREAM 30 GM TUBE TOP SCH (08:22)
[2020-07-11] MEDS: ASPIRIN 81 MG TAB.CHEW PO SCH (08:23)
[2020-07-11] MEDS: NEOMY/BACITRAC/POLYMI OINT 28.35 GM TUBE TOP SCH (08:23)
[2020-07-11 09:13] VITALS: BP 133/74
[2020-07-11] MEDS: METOPROLOL TARTRATE 25 MG TABLET PO SCH (09:13)
--- NOTE | 2020-07-11 15:15 | NUR ---
GPS: Nursing Notes: Discharge Notes: Patient is awake and responding to his name, cooperative with nursing care, compliant with his medications, following staff directions, denies SI/HI, denies AH/VH, denies pain or discomfort, denies SOB. Discharge to [facility] at [address] [place] [address] , report given to facility's nurse - DOMONIQUE Gaviria, took all his belongings with him, transported to facility via ambulance. Patient's - Kaitlynn Garcia informed of discharge by social psychologist. Patient will follow-up at the facility with Dr. Martell Doughnut Maker and Dr. Garvin Psychiatrist for aftercare.
[2020-07-11] MEDS ORDERED: DIVA250T4 PO (23:34)
[2020-07-11] MEDS ORDERED: ATOR20TA PO (23:34)
[2020-07-11] MEDS ORDERED: MAG-55 PO (23:34)
[2020-07-11] MEDS ORDERED: DEXT50VI3 IV (23:34)
[2020-07-11] MEDS ORDERED: CLON0.5T PO (23:34)
[2020-07-11] MEDS ORDERED: ACET-2154 PO (23:34)
[2020-07-11] MEDS ORDERED: ESCI20TA PO (23:34)
[2020-07-11] MEDS ORDERED: ASPI-1094 PO (23:34)
[2020-07-11] MEDS ORDERED: CLON1TAB12 PO (23:34)
[2020-07-11] MEDS ORDERED: TEMA7.5C PO (23:40)
[2020-07-11] MEDS ORDERED: MAGN400O6 PO (23:40)
[2020-07-11] MEDS ORDERED: REGULAR INSULIN (23:40)
[2020-07-11] MEDS ORDERED: FURO-152 PO (23:40)
[2020-07-11] MEDS ORDERED: GLIP2.5T16 PO (23:40)
[2020-07-11] MEDS ORDERED: QUET100T PO (23:40)
[2020-07-11] MEDS ORDERED: NEOM1PAC2 TP (23:40)
[2020-07-11] MEDS ORDERED: POTA20TA10 PO (23:40)
[2020-07-11] MEDS ORDERED: METO25TA6 PO (23:40)
== END 2020-07-11 15:15 | DRG 885 ==
LOC: ER 21:49 → GPS 23:35
PROVIDERS: ADMIT Psychiatry & Neurology Psychiatry; ATTEND Internal Medicine
DX: F29 Unspecified psychosis not due to a substance or known physiological condition (principal); N17.0 Acute kidney failure with tubular necrosis; I11.0 Hypertensive heart disease with heart failure; Z68.41 Body mass index [BMI] 40.0-44.9, adult; F03.91 Unspecified dementia, unspecified severity, with behavioral disturbance; F32.3 Major depressive disorder, single episode, severe with psychotic features; E44.0 Moderate protein-calorie malnutrition; R45.850 Homicidal ideations; E78.5 Hyperlipidemia, unspecified; Z79.02 Long term (current) use of antithrombotics/antiplatelets; E66.01 Morbid (severe) obesity due to excess calories; I25.10 Atherosclerotic heart disease of native coronary artery without angina pectoris; N40.0 Benign prostatic hyperplasia without lower urinary tract symptoms; Z79.4 Long term (current) use of insulin; Z79.82 Long term (current) use of aspirin; Z86.73 Personal history of transient ischemic attack (TIA), and cerebral infarction without residual deficits; F41.9 Anxiety disorder, unspecified; I50.9 Heart failure, unspecified; E11.9 Type 2 diabetes mellitus without complications; F39 Unspecified mood [affective] disorder; Z20.822 Contact with and (suspected) exposure to COVID-19
CPT/HCPCS: 36415; 76770; 83735; 84100; 84443; 85025; A4663; J1815; J2358; J3490

== ENCOUNTER 2020-07-11 22:53 | Inpatient (IN) | payer MEDICARE, OTHER ==
[~2020-07-11] VITALS: Ht 167.6 cm; Wt 113.9 kg
[~2020-07-11 22:53] MED LIST: ASPI81TA31 PO; ATOR20TA PO; CLOP75TA15 PO; FURO-151 PO; INSU100V39; INSU100V7 SQ; LISI10TA29 PO; METF-442 PO; METO25TA6 PO; POTA20TA10 PO; TAMS0.4C34 PO
--- NOTE | 2020-07-11 23:04 | NUR ---
Dr Rangel is at bedside for MSE.
--- NOTE | 2020-07-11 23:18 | NUR ---
Wound care on bilateral hands are being done by Cj YOUSSEF for multiple skin tears. demonstrator sewing techniques at bedside. COVID 19 swab done as well.
--- NOTE | 2020-07-11 23:23 | NUR ---
elevator service technician at bedside.
[2020-07-11 23:29] LABS: BASOPHILS % (AUTO) 0.5 % (0.0-2.0); EOSINOPHILS % (AUTO) 0.6 % (0.0-7.0); HEMATOCRIT 40.7 % (36.7-47.1); HEMOGLOBIN 13.7 g/dL (12.5-16.3); LYMPHOCYTES # (AUTO) 0.9 K/uL (20.0-40.0); LYMPHOCYTES % (AUTO) 10.4 % (20.5-51.5); MEAN CORPUSCULAR HEMOGLOBIN 29.4 uug (23.8-33.4); MEAN CORPUSCULAR HGB CONC 34 g/dL (32.5-36.3); MEAN CORPUSCULAR VOLUME 87.3 fL (73.0-96.2); MONOCYTES # (AUTO) 0.7 K/uL (2.0-10.0); MONOCYTES % (AUTO) 8.5 % (0.0-11.0); NEUTROPHILS # (AUTO) 6.9 K/uL (1.8-8.9); PLATELET COUNT (AUTO) 298 K/uL (152-348); RED BLOOD CELL COUNT(AUTO) 4.66 MIL/uL (4.06-5.63); WHITE BLOOD COUNT (AUTO) 8.6 K/uL (3.6-10.2)
[2020-07-11] MEDS ORDERED: DIVA250T4 PO (23:34)
[2020-07-11] MEDS ORDERED: ACET-2154 PO (23:34)
[2020-07-11] MEDS ORDERED: DEXT50VI3 IV (23:34)
[2020-07-11] MEDS ORDERED: ATOR20TA PO (23:34)
[2020-07-11] MEDS ORDERED: MAG-55 PO (23:34)
[2020-07-11] MEDS ORDERED: ASPI-1094 PO (23:34)
[2020-07-11] MEDS ORDERED: CLON1TAB12 PO (23:34)
[2020-07-11] MEDS ORDERED: ESCI20TA PO (23:34)
[2020-07-11] MEDS ORDERED: CLON0.5T PO (23:34)
[2020-07-11 23:37] LABS: CARBON DIOXIDE 26 mmol/L (21-32); CHLORIDE 102 mmol/L (98-107); CREATININE 1.4 mg/dL (0.6-1.3); GLUCOSE 217 mg/dL (74-106); POTASSIUM 4.3 mmol/L (3.5-5.1); UREA NITROGEN, BLOOD 23 mg/dL (7-18)
[2020-07-11] MEDS ORDERED: GLIP2.5T16 PO (23:40)
[2020-07-11] MEDS ORDERED: MAGN400O6 PO (23:40)
[2020-07-11] MEDS ORDERED: REGULAR INSULIN (23:40)
[2020-07-11] MEDS ORDERED: POTA20TA10 PO (23:40)
[2020-07-11] MEDS ORDERED: TEMA7.5C PO (23:40)
[2020-07-11] MEDS ORDERED: NEOM1PAC2 TP (23:40)
[2020-07-11] MEDS ORDERED: QUET100T PO (23:40)
[2020-07-11] MEDS ORDERED: FURO-152 PO (23:40)
[2020-07-11] MEDS ORDERED: METO25TA6 PO (23:40)
[2020-07-11 23:43] LABS: ALANINE AMINOTRANSFERASE 28 U/L (16-63); ALKALINE PHOSPHATASE 106 U/L (50-136); ASPARTATE AMINOTRANSFERASE 16 U/L (15-37); BILIRUBIN,DIRECT 0.1 mg/dL (0.0-0.2); BILIRUBIN,TOTAL 0.4 mg/dL (0.2-1.0); TOTAL PROTEIN, SERUM 7.6 g/dL (6.4-8.2)
[2020-07-11 23:46] LABS: ACETAMINOPHEN < 2.0 ug/mL (10-30)
--- NOTE | 2020-07-11 23:49 | NUR ---
EKG done and Urine sample sent to the lab.
--- NOTE | 2020-07-11 23:50 | NUR ---
Art CUTTING AND SPLICING SUPERVISOR at bedside for Psych Eval.
[2020-07-11 23:51] LABS: THYROID STIMULATING HORMONE 1.266 mIU/mL (0.358-3.740)
[2020-07-11 23:52] LABS: ETHANOL 4 MG/DL (0-0)
[2020-07-11 23:58] LABS: *BILIRUBIN,URIN NEGATIVE (NEGATIVE); *BLOOD, URINE NEGATIVE (NEGATIVE); *CLARITY,URINE CLEAR (CLEAR); *COLOR,URINE YELLOW (YELLOW); *KETONES,URINE 1+ (NEGATIVE); *UROBILINOGEN,URINE 0.2 E.U./dl (NORMAL); LEUKOCYTE ESTERASE ,URINE NEGATIVE (NEGATIVE); NITRITE, URINE NEGATIVE (NEGATIVE); PH,URINE 5.5 (5.0-8.0); UGLUCOSE NEGATIVE (NEGATIVE)
[2020-07-12 00:10] LABS: *AMPHETAMINE, URINE NEGATIVE (NEGATIVE); *CANNABINOID, URINE NEGATIVE (NEGATIVE); *COCCAINE, URINE NEGATIVE (NEGATIVE); *OPIATE, URINE NEGATIVE (NEGATIVE); *PHENCYCLIDINE SCREEN,URINE NEGATIVE (NEGATIVE)
--- NOTE | 2020-07-12 00:20 | NUR ---
Pt medically cleared. Will be admitted under Dr Vega, 5150 for being GD 07/12/20 0015.
--- NOTE | 2020-07-12 00:25 | NUR ---
Noris YOUSSEF given report.
--- NOTE | 2020-07-12 00:27 | NUR ---
Belongings list completed, and patient's belongings in nursing station at this time for patient's safety.
[2020-07-12] MEDS ORDERED: BLOOD SUGAR DIAGNOSTIC 1 EACH STRIP VI ONE (01:00)
[2020-07-12] MEDS ORDERED: MAGNESIUM HYDROXIDE 30 ML LIQUID UDC PO PRN (01:00)
[2020-07-12] MEDS ORDERED: MAG HYDROX/AL HYDROX/SIMETH 30 ML LIQUID UDC PO PRN (01:00)
[2020-07-12] MEDS ORDERED: ACETAMINOPHEN 325 MG TABLET PO PRN (01:00)
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
[2020-07-12 02:28] VITALS: BP 148/72
--- NOTE | 2020-07-12 06:57 | NUR ---
PT SLEPT 3.15 H. PT IN NO ACUTE DISTRESS. PT HAD EPISODES OF CONFUSION AND ASKING FOR HIS . PT NEEDS REORIENTATION. SAFETY AND COMFORT PROVIDED. ALL NEEDS ARE MET. WILL ENDORSE TO INCOMING NURSE FOR CONTINUITY OF CARE.
[2020-07-12 07:30] VITALS: BP 147/86
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
--- NOTE | 2020-07-12 10:31 | NUR ---
SW Family Contact: SW spoke with patient's , Kaitlynn ([phone]) and discussed treatment and discharge plan. Kaitlynn would like patient to return to [facility] upon discharge.
--- NOTE | 2020-07-12 10:32 | NUR ---
Firearms Report: Career Guidance Counselor completed and submitted a DOJ firearms report for 5150 grave disability certifications. A copy of report has been placed in patient chart.
--- NOTE | 2020-07-12 10:55 | NUR ---
WOUND CARE CONSULT: PT PRESENTS WITH RT HAND AND ARM SKIN TEARS, LEFT HAND DRY ABRASION AND CLOSED SKIN TEAR WELL RASH TO GROIN FOLDS AND PERINEUM, PRESENT ON ADMISSION. RECOMMENDATIONS MADE FOR SKIN PROTECTION AND WOUND CARE. DISCUSSED WITH NURSING STAFF. IN AGREEMENT WITH PLAN OF CARE. Addendum: 07/12/20 at 1057 by BERNARDO WILSON RN Amended: Links added.
[2020-07-12] MEDS ORDERED: MAGNESIUM HYDROXIDE 30 ML LIQUID UDC PO SCH (11:45)
[2020-07-12] MEDS ORDERED: MAG HYDROX/AL HYDROX/SIMETH 30 ML LIQUID UDC PO SCH (11:45)
[2020-07-12] MEDS ORDERED: DEXTROSE 50% 50 ML DISP.SYRIN IV PRN (11:45)
[2020-07-12] MEDS ORDERED: ACETAMINOPHEN 325 MG TABLET PO SCH (11:45)
[2020-07-12] MEDS: BLOOD SUGAR DIAGNOSTIC 1 EACH STRIP VI SCH ×3 (11:45→20:51)
[2020-07-12] MEDS: INSULIN REGULAR, HUMAN 300 UNIT/3 ML VIAL SQ PRN ×2 (12:20→16:47)
[2020-07-12] MEDS: CLONAZEPAM 0.5 MG TABLET PO PRN ×2 (13:48→20:02)
[2020-07-12 16:51] VITALS: BP 141/71
[2020-07-12] MEDS: DIVALPROEX 500 MG TABLET.DR PO SCH ×2 (16:53→21:01)
[2020-07-12] MEDS: HALOPERIDOL 2 MG TABLET PO SCH (16:53)
[2020-07-12] MEDS: METOPROLOL TARTRATE 25 MG TABLET PO SCH (16:56)
[2020-07-12] MEDS ORDERED: METOPROLOL TARTRATE 25 MG TABLET PO SCH (17:00)
[2020-07-12] MEDS: CLOTRIMAZOLE 1% CREAM 30 GM TUBE TOP SCH (17:23)
[2020-07-12] MEDS: glipiZIDE 5 MG TABLET PO SCH (18:27)
[2020-07-12] MEDS: TAMSULOSIN HCL 0.4 MG CAP.SR.24H PO SCH (20:01)
[2020-07-12] MEDS: ATORVASTATIN 20 MG TABLET PO SCH (20:02)
[2020-07-12 20:27] VITALS: BP 142/74
[2020-07-12] MEDS: INSULIN GLARGINE,HUM 300 UNITS/3 ML CARTRIDGE SQ SCH (20:55)
[2020-07-12] MEDS: INSULIN REGULAR, HUMAN 300 UNITS/3 ML VIAL SQ PRN (20:57)
--- NOTE | 2020-07-13 06:37 | NUR ---
PT SLEPT 7.15 H. PT PLEASANTLY CONFUSED AND NEEDS REORIENTATION. PT CALM WHEN APPROACHED. COOPERATIVE WITH CARE. PRESCRIBED MEDICATION GIVEN AND PT TOLERATED IT WELL.PT GIVEN KLONOPIN AT 2002h. SAFETY AND COMFORT PROVIDED. WILL ENDORSE TO INCOMING NURSE FOR CONTINUITY OF CARE.
[2020-07-13] MEDS: BLOOD SUGAR DIAGNOSTIC 1 EACH STRIP VI SCH ×4 (06:54→20:53)
[2020-07-13 07:30] VITALS: BP 94/67
[2020-07-13 07:57] LABS: BILIRUBIN,TOTAL 0.3 mg/dL (0.2-1.0); CREATININE 1.3 mg/dL (0.6-1.3); TOTAL PROTEIN, SERUM 7.1 g/dL (6.4-8.2)
[2020-07-13] MEDS: ASPIRIN 81 MG TAB.CHEW PO SCH (08:25)
[2020-07-13] MEDS: CLOPIDOGREL 75 MG TABLET PO SCH (08:25)
[2020-07-13] MEDS: FUROSEMIDE 20 MG TABLET PO SCH (08:26)
[2020-07-13] MEDS: LISINOPRIL 10 MG TABLET PO SCH (08:26)
[2020-07-13] MEDS: HALOPERIDOL 2 MG TABLET PO SCH ×2 (08:26→18:16)
[2020-07-13] MEDS: METOPROLOL TARTRATE 25 MG TABLET PO SCH ×2 (08:26→18:16)
[2020-07-13] MEDS: POTASSIUM CHLORIDE 20 MEQ TAB.PRT.SR PO SCH (08:26)
[2020-07-13] MEDS: DIVALPROEX 500 MG TABLET.DR PO SCH ×2 (08:26→20:31)
[2020-07-13] MEDS: CLOTRIMAZOLE 1% CREAM 30 GM TUBE TOP SCH ×2 (08:27→18:17)
[2020-07-13] MEDS: INSULIN REGULAR, HUMAN 300 UNIT/3 ML VIAL SQ PRN ×3 (08:30→18:21)
[2020-07-13] MEDS: glipiZIDE 5 MG TABLET PO SCH ×2 (08:39→18:19)
[2020-07-13] MEDS ORDERED: POTASSIUM CHLORIDE 20 MEQ TAB.PRT.SR PO SCH (09:00)
[2020-07-13] MEDS ORDERED: ASPIRIN 81 MG TAB.CHEW PO SCH (09:00)
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
[2020-07-13] MEDS: CLONAZEPAM 0.5 MG TABLET PO PRN (13:55)
[2020-07-13 16:00] VITALS: BP 106/52
[2020-07-13 20:18] VITALS: BP 116/73
[2020-07-13] MEDS: SULFAMETH/TRIMETH 800/160 MG TABLET PO SCH (20:32)
[2020-07-13] MEDS: TAMSULOSIN HCL 0.4 MG CAP.SR.24H PO SCH (20:32)
[2020-07-13] MEDS: ATORVASTATIN 20 MG TABLET PO SCH (20:32)
[2020-07-13] MEDS: INSULIN REGULAR, HUMAN 300 UNITS/3 ML VIAL SQ PRN (20:56)
[2020-07-13] MEDS: INSULIN GLARGINE,HUM 300 UNITS/3 ML CARTRIDGE SQ SCH (20:57)
--- NOTE | 2020-07-13 22:30 | NUR ---
offered sleeping medication but patient refused.
--- NOTE | 2020-07-14 05:31 | NUR ---
GPS: Remain confused and forgetful. need frequently redirection. pleasant upon approach. assisted with adl'.s.compliant with medications and care. wound care done left hand. kept clean and dry. continue plan of care.
[2020-07-14] MEDS: BLOOD SUGAR DIAGNOSTIC 1 EACH STRIP VI SCH ×4 (06:30→20:02)
--- NOTE | 2020-07-14 06:45 | NUR ---
slept 3.30 hrs through the night.
[2020-07-14 07:30] VITALS: BP 101/59
[2020-07-14] MEDS: glipiZIDE 5 MG TABLET PO SCH ×2 (08:37→16:36)
[2020-07-14] MEDS: SULFAMETH/TRIMETH 800/160 MG TABLET PO SCH ×2 (08:38→20:02)
[2020-07-14] MEDS: ASPIRIN 81 MG TAB.CHEW PO SCH (08:38)
[2020-07-14] MEDS: CLOPIDOGREL 75 MG TABLET PO SCH (08:39)
[2020-07-14] MEDS: HALOPERIDOL 2 MG TABLET PO SCH ×2 (08:44→13:10)
[2020-07-14] MEDS: FUROSEMIDE 20 MG TABLET PO SCH (08:44)
[2020-07-14] MEDS: POTASSIUM CHLORIDE 20 MEQ TAB.PRT.SR PO SCH (08:44)
[2020-07-14] MEDS: DIVALPROEX 500 MG TABLET.DR PO SCH ×2 (08:44→20:03)
[2020-07-14] MEDS: CLOTRIMAZOLE 1% CREAM 30 GM TUBE TOP SCH ×2 (08:45→16:39)
[2020-07-14] MEDS: INSULIN REGULAR, HUMAN 300 UNIT/3 ML VIAL SQ PRN ×2 (08:49→12:36)
--- NOTE | 2020-07-14 08:50 | NUR ---
[facility] SNF Referral: BARRINGTON faxed patient's referral packet to [facility] for review and possible placement (fax: [phone]) attention to Vel.
[2020-07-14] MEDS: LISINOPRIL 10 MG TABLET PO SCH (09:00)
[2020-07-14] MEDS: METOPROLOL TARTRATE 25 MG TABLET PO SCH ×2 (09:00→16:38)
--- NOTE | 2020-07-14 11:06 | NUR ---
WOUND CARE CONSULT (LATE ENTRY): PT WAS SEEN ON 07/11/20 FOR SKIN ASSESSMENT. PT WAS NOTED TO HAVE DRY ABRASION TO LEFT HAND AND SKIN TEARS TO RT DORSAL HAND, AND ARM, PRESENT ON ADMISSION. WOUNDS WERE CLEANSED WITH NS, THEN XEROFORM APPLIED, COVERED WITH DRY DRESSING. PT TOLERATED WELL. PT WAS ALSO NOTED TO HAVE RASH AND INCONTINENCE ASSOCIATED SKIN DAMAGE TO GLUTEAL CREASE AND BUTTOCKS. RECOMMENDATIONS MADE FOR SKIN CARE AND PROTECTION. DISCUSSED WITH NURSING STAFF. WILL SEE PRN. HANCOCK IN AGREEMENT WITH PLAN OF CARE Addendum: 07/14/20 at 1112 by BERNARDO WILSON RN PLEASE DISREGARD ABOVE WOUND CARE CONSULT NOTE. ERROR.
--- NOTE | 2020-07-14 11:22 | NUR ---
WOUND CARE FOLLOW UP: PT SEEN FOR RE-EVALUATION OF RT DORSAL HAND SKIN TEAR (NEAR FINGERS), PRESENT ON ADMISSION. SKIN TEAR HAS EDGES APPROXIMATED BUT AREA NOW APPEARS RAISED AND RED WITH TENDERNESS. NO DRAINAGE NOTED AT THIS TIME. SURGICAL CONSULT WAS CALLED TO DR ADAME. DISCUSSED SKIN PROTECTION AND WOUND CARE RECOMMENDATIONS WITH NURSING STAFF TIL SEEN BY SURGEON. IN AGREEMENT WITH PLAN OF CARE.
[2020-07-14 16:00] VITALS: BP 148/64
[2020-07-14] MEDS: BENZTROPINE MESYLATE 0.5 MG TABLET PO SCH (16:37)
[2020-07-14] MEDS: HALOPERIDOL 5 MG TABLET PO SCH (16:37)
--- NOTE | 2020-07-14 16:56 | NUR ---
Gps/Cee Lyon Wound care Nurse was in to check on patient's right and left hand wound, dressings was charged, foam applied to left hand. Less redness to his bilateral legs/shins, lower ext. elevated. .Patient calmer, less anxious this pm.
[2020-07-14 19:52] VITALS: BP 145/77
[2020-07-14] MEDS: CLONAZEPAM 0.5 MG TABLET PO PRN (20:02)
[2020-07-14] MEDS: ATORVASTATIN 20 MG TABLET PO SCH (20:03)
[2020-07-14] MEDS: TAMSULOSIN HCL 0.4 MG CAP.SR.24H PO SCH (20:03)
[2020-07-14] MEDS: INSULIN GLARGINE,HUM 300 UNITS/3 ML CARTRIDGE SQ SCH (20:08)
[2020-07-14] MEDS: INSULIN REGULAR, HUMAN 300 UNITS/3 ML VIAL SQ PRN (20:10)
[2020-07-14] MEDS: TEMAZEPAM 7.5 MG CAPSULE PO PRN (23:57)
--- NOTE | 2020-07-15 06:26 | NUR ---
Patient slept 8.00 hours last night and is up early. Blood sugar was low at 59. Wilkes juice provided and blood sugar rechecked is 108. No s/s of alteration in glucose metabolism noted. Continuing to monitor for safety.
[2020-07-15] MEDS: BLOOD SUGAR DIAGNOSTIC 1 EACH STRIP VI SCH ×4 (06:35→20:59)
[2020-07-15 07:30] VITALS: BP 97/61
[2020-07-15] MEDS: CLOPIDOGREL 75 MG TABLET PO SCH (08:03)
[2020-07-15] MEDS: glipiZIDE 5 MG TABLET PO SCH ×2 (08:05→18:23)
[2020-07-15] MEDS: ASPIRIN 81 MG TAB.CHEW PO SCH (08:06)
[2020-07-15] MEDS: SULFAMETH/TRIMETH 800/160 MG TABLET PO SCH ×2 (08:06→21:03)
[2020-07-15] MEDS: LISINOPRIL 10 MG TABLET PO SCH (08:07)
[2020-07-15] MEDS: POTASSIUM CHLORIDE 20 MEQ TAB.PRT.SR PO SCH (08:07)
[2020-07-15] MEDS: BENZTROPINE MESYLATE 0.5 MG TABLET PO SCH ×2 (08:08→18:23)
[2020-07-15] MEDS: CLOTRIMAZOLE 1% CREAM 30 GM TUBE TOP SCH ×2 (08:08→18:27)
[2020-07-15] MEDS: DIVALPROEX 500 MG TABLET.DR PO SCH ×2 (08:08→21:03)
[2020-07-15] MEDS: METOPROLOL TARTRATE 25 MG TABLET PO SCH ×2 (08:09→18:22)
[2020-07-15] MEDS: HALOPERIDOL 5 MG TABLET PO SCH ×2 (08:09→18:23)
[2020-07-15] MEDS: INSULIN REGULAR, HUMAN 300 UNIT/3 ML VIAL SQ PRN ×2 (08:28→18:24)
[2020-07-15] MEDS: FUROSEMIDE 20 MG TABLET PO SCH (10:29)
[2020-07-15 16:00] VITALS: BP 126/51
[2020-07-15 20:00] VITALS: BP 134/64
[2020-07-15] MEDS: INSULIN GLARGINE,HUM 300 UNITS/3 ML CARTRIDGE SQ SCH (21:01)
[2020-07-15] MEDS: INSULIN REGULAR, HUMAN 300 UNITS/3 ML VIAL SQ PRN (21:02)
[2020-07-15] MEDS: CLONAZEPAM 0.5 MG TABLET PO PRN (21:03)
[2020-07-15] MEDS: ATORVASTATIN 20 MG TABLET PO SCH (21:03)
[2020-07-15] MEDS: TAMSULOSIN HCL 0.4 MG CAP.SR.24H PO SCH (21:03)
[2020-07-16] MEDS: TEMAZEPAM 7.5 MG CAPSULE PO PRN ×2 (00:23→22:45)
[2020-07-16] MEDS: BLOOD SUGAR DIAGNOSTIC 1 EACH STRIP VI SCH ×4 (05:54→20:34)
--- NOTE | 2020-07-16 06:38 | NUR ---
Patients is awake and confused. Total sleep hours were 6.15. Home Companion put patient in the chair at the station for safety. This patient is impulsive and just gets up to walk and is unsteady. Reorientation needed and provided by staff. Patient talks about going home continuously. No acute behavior noted as patient is calm and has not shown any angry outburst during this shift.
[2020-07-16 07:30] VITALS: BP 117/69
[2020-07-16] MEDS: ASPIRIN 81 MG TAB.CHEW PO SCH (08:18)
[2020-07-16] MEDS: INSULIN REGULAR, HUMAN 300 UNIT/3 ML VIAL SQ PRN ×3 (08:18→17:46)
[2020-07-16] MEDS: LISINOPRIL 10 MG TABLET PO SCH (08:19)
[2020-07-16] MEDS: HALOPERIDOL 5 MG TABLET PO SCH ×2 (08:20→17:42)
[2020-07-16] MEDS: POTASSIUM CHLORIDE 20 MEQ TAB.PRT.SR PO SCH (08:20)
[2020-07-16] MEDS: SULFAMETH/TRIMETH 800/160 MG TABLET PO SCH ×2 (08:20→20:31)
[2020-07-16] MEDS: glipiZIDE 5 MG TABLET PO SCH ×2 (08:21→17:42)
[2020-07-16] MEDS: BENZTROPINE MESYLATE 0.5 MG TABLET PO SCH ×2 (08:21→17:42)
[2020-07-16] MEDS: CLOPIDOGREL 75 MG TABLET PO SCH (08:21)
[2020-07-16] MEDS: METOPROLOL TARTRATE 25 MG TABLET PO SCH ×2 (08:21→17:43)
[2020-07-16] MEDS: DIVALPROEX 500 MG TABLET.DR PO SCH ×2 (08:21→20:32)
[2020-07-16] MEDS: FUROSEMIDE 20 MG TABLET PO SCH (08:23)
[2020-07-16] MEDS: CLOTRIMAZOLE 1% CREAM 30 GM TUBE TOP SCH ×2 (08:24→17:44)
[2020-07-16 15:40] VITALS: BP 105/57
[2020-07-16 20:17] VITALS: BP 112/61
[2020-07-16] MEDS: ATORVASTATIN 20 MG TABLET PO SCH (20:32)
[2020-07-16] MEDS: INSULIN REGULAR, HUMAN 300 UNITS/3 ML VIAL SQ PRN (20:39)
[2020-07-16] MEDS: INSULIN GLARGINE,HUM 300 UNITS/3 ML CARTRIDGE SQ SCH (20:40)
[2020-07-16] MEDS: TAMSULOSIN HCL 0.4 MG CAP.SR.24H PO SCH (21:52)
[2020-07-17] MEDS: CLONAZEPAM 0.5 MG TABLET PO PRN ×2 (00:18→08:45)
--- NOTE | 2020-07-17 00:18 | NUR ---
patient is noted delusional, stated, "where is my wallet" accusing staff of stealing from him. wants to leave the facility. patient is hard to redirect. he is forgetful. multiple redirection given. Patient is reassured for his safety. klonopin 0.5mg PO PRN was given for anxiety and agitation. will continue to monitor.
[2020-07-17] MEDS: BLOOD SUGAR DIAGNOSTIC 1 EACH STRIP VI SCH ×4 (06:33→20:44)
[2020-07-17 07:30] VITALS: BP 107/62
[2020-07-17] MEDS: ASPIRIN 81 MG TAB.CHEW PO SCH (08:44)
[2020-07-17] MEDS: FUROSEMIDE 20 MG TABLET PO SCH (08:44)
[2020-07-17] MEDS: SULFAMETH/TRIMETH 800/160 MG TABLET PO SCH ×2 (08:45→20:37)
[2020-07-17] MEDS: POTASSIUM CHLORIDE 20 MEQ TAB.PRT.SR PO SCH (08:45)
[2020-07-17] MEDS: HALOPERIDOL 5 MG TABLET PO SCH ×2 (08:45→17:54)
[2020-07-17] MEDS: DIVALPROEX 500 MG TABLET.DR PO SCH ×2 (08:45→20:37)
[2020-07-17] MEDS: BENZTROPINE MESYLATE 0.5 MG TABLET PO SCH ×2 (08:45→17:54)
[2020-07-17] MEDS: LISINOPRIL 10 MG TABLET PO SCH (08:45)
[2020-07-17] MEDS: METOPROLOL TARTRATE 25 MG TABLET PO SCH ×2 (08:46→17:54)
[2020-07-17] MEDS: CLOPIDOGREL 75 MG TABLET PO SCH (08:46)
[2020-07-17] MEDS: glipiZIDE 5 MG TABLET PO SCH ×2 (08:47→17:54)
[2020-07-17] MEDS: CLOTRIMAZOLE 1% CREAM 30 GM TUBE TOP SCH ×2 (08:47→17:55)
[2020-07-17] MEDS: INSULIN REGULAR, HUMAN 300 UNIT/3 ML VIAL SQ PRN ×3 (08:53→17:56)
[2020-07-17 16:00] VITALS: BP 111/64
[2020-07-17] MEDS: CLONAZEPAM 0.5 MG TABLET PO SCH (17:54)
[2020-07-17] MEDS: TAMSULOSIN HCL 0.4 MG CAP.SR.24H PO SCH (20:37)
[2020-07-17] MEDS: ATORVASTATIN 20 MG TABLET PO SCH (20:37)
[2020-07-17 20:44] VITALS: BP 112/62
[2020-07-17] MEDS: INSULIN REGULAR, HUMAN 300 UNITS/3 ML VIAL SQ PRN (20:45)
[2020-07-17] MEDS: INSULIN GLARGINE,HUM 300 UNITS/3 ML CARTRIDGE SQ SCH (20:52)
[2020-07-18] MEDS: TEMAZEPAM 7.5 MG CAPSULE PO PRN ×2 (02:03→21:38)
[2020-07-18] MEDS: BLOOD SUGAR DIAGNOSTIC 1 EACH STRIP VI SCH ×6 (06:09→20:06)
[2020-07-18] MEDS: CLONAZEPAM 0.5 MG TABLET PO PRN (06:45)
[2020-07-18 07:30] VITALS: BP 98/53
[2020-07-18] MEDS: ASPIRIN 81 MG TAB.CHEW PO SCH (08:46)
[2020-07-18] MEDS: POTASSIUM CHLORIDE 20 MEQ TAB.PRT.SR PO SCH (08:46)
[2020-07-18] MEDS: DIVALPROEX 500 MG TABLET.DR PO SCH ×2 (08:46→20:07)
[2020-07-18] MEDS: glipiZIDE 5 MG TABLET PO SCH ×2 (08:46→16:49)
[2020-07-18] MEDS: FUROSEMIDE 20 MG TABLET PO SCH (08:46)
[2020-07-18] MEDS: CLOPIDOGREL 75 MG TABLET PO SCH (08:46)
[2020-07-18] MEDS: BENZTROPINE MESYLATE 0.5 MG TABLET PO SCH ×2 (08:46→16:48)
[2020-07-18] MEDS: CLONAZEPAM 0.5 MG TABLET PO SCH ×3 (08:47→16:48)
[2020-07-18] MEDS: SULFAMETH/TRIMETH 800/160 MG TABLET PO SCH ×2 (08:47→20:07)
[2020-07-18] MEDS: HALOPERIDOL 5 MG TABLET PO SCH ×2 (08:47→16:48)
[2020-07-18] MEDS: LISINOPRIL 10 MG TABLET PO SCH (08:48)
[2020-07-18] MEDS: METOPROLOL TARTRATE 25 MG TABLET PO SCH ×2 (08:48→16:50)
[2020-07-18] MEDS: CLOTRIMAZOLE 1% CREAM 30 GM TUBE TOP SCH ×2 (09:04→17:05)
--- NOTE | 2020-07-18 10:37 | NUR ---
BARRINGTON Individual Therapy Note: SW met with patient to provide brief individual counseling to address patient's presenting problem of labile mood. Patient is observed sitting in a edy chair with a bright affect. Patient presents with a more euthymic mood and less agitation. Patient has been presenting with a calmer demeanor and cooperative with his care. SW encouraged patient to join group daily and interact with peers. Patient has been withdrawn and isolative when encouraged to be interactive in daily activities.
[2020-07-18] MEDS: INSULIN REGULAR, HUMAN 300 UNIT/3 ML VIAL SQ PRN ×2 (11:47→16:47)
[2020-07-18 15:20] VITALS: BP 152/68
[2020-07-18] MEDS: TAMSULOSIN HCL 0.4 MG CAP.SR.24H PO SCH (20:06)
[2020-07-18] MEDS: ATORVASTATIN 20 MG TABLET PO SCH (20:07)
[2020-07-18 20:22] VITALS: BP 139/61
[2020-07-18] MEDS: INSULIN GLARGINE,HUM 300 UNITS/3 ML CARTRIDGE SQ SCH (20:28)
[2020-07-18] MEDS: INSULIN REGULAR, HUMAN 300 UNITS/3 ML VIAL SQ PRN (20:28)
[2020-07-18] MEDS: ACETAMINOPHEN 325 MG TABLET PO PRN (21:38)
[2020-07-19] MEDS: BLOOD SUGAR DIAGNOSTIC 1 EACH STRIP VI SCH ×4 (06:13→21:10)
[2020-07-19 07:30] VITALS: BP 104/59
[2020-07-19] MEDS: glipiZIDE 5 MG TABLET PO SCH ×2 (07:30→16:55)
[2020-07-19] MEDS: CLOTRIMAZOLE 1% CREAM 30 GM TUBE TOP SCH ×2 (08:25→17:02)
[2020-07-19] MEDS: CLONAZEPAM 0.5 MG TABLET PO SCH ×3 (08:25→16:55)
[2020-07-19] MEDS: ASPIRIN 81 MG TAB.CHEW PO SCH (08:25)
[2020-07-19] MEDS: SULFAMETH/TRIMETH 800/160 MG TABLET PO SCH ×2 (08:25→21:09)
[2020-07-19] MEDS: BENZTROPINE MESYLATE 0.5 MG TABLET PO SCH ×2 (08:25→16:55)
[2020-07-19] MEDS: DIVALPROEX 500 MG TABLET.DR PO SCH ×2 (08:26→21:09)
[2020-07-19] MEDS: HALOPERIDOL 5 MG TABLET PO SCH ×2 (08:26→16:55)
[2020-07-19] MEDS: FUROSEMIDE 20 MG TABLET PO SCH (08:26)
[2020-07-19] MEDS: CLOPIDOGREL 75 MG TABLET PO SCH (08:26)
[2020-07-19] MEDS: POTASSIUM CHLORIDE 20 MEQ TAB.PRT.SR PO SCH (08:26)
[2020-07-19] MEDS: METOPROLOL TARTRATE 25 MG TABLET PO SCH ×2 (08:36→17:00)
[2020-07-19] MEDS: LISINOPRIL 10 MG TABLET PO SCH (08:41)
[2020-07-19] MEDS: INSULIN REGULAR, HUMAN 300 UNIT/3 ML VIAL SQ PRN ×3 (12:20→21:10)
--- NOTE | 2020-07-19 14:10 | NUR ---
Court Hearing: Patient's court hearing was held today and it was upheld for GD.
[2020-07-19 16:10] VITALS: BP 117/45
[2020-07-19] MEDS: ATORVASTATIN 20 MG TABLET PO SCH (21:09)
[2020-07-19] MEDS: TAMSULOSIN HCL 0.4 MG CAP.SR.24H PO SCH (21:13)
[2020-07-19] MEDS: INSULIN GLARGINE,HUM 300 UNITS/3 ML CARTRIDGE SQ SCH (21:14)
[2020-07-19 21:17] VITALS: BP 141/67
[2020-07-20] MEDS: ACETAMINOPHEN 325 MG TABLET PO PRN (01:03)
[2020-07-20] MEDS: BLOOD SUGAR DIAGNOSTIC 1 EACH STRIP VI SCH ×4 (06:31→20:06)
[2020-07-20] MEDS: glipiZIDE 5 MG TABLET PO SCH ×2 (06:31→16:49)
--- NOTE | 2020-07-20 06:35 | NUR ---
Pt slept 6 hours. C/o minor leg pain at 0100H and was provided with Tylenol. Pt tolerated all medications well.
[2020-07-20 07:30] VITALS: BP 125/61
[2020-07-20] MEDS: DIVALPROEX 500 MG TABLET.DR PO SCH ×2 (08:56→20:03)
[2020-07-20] MEDS: ASPIRIN 81 MG TAB.CHEW PO SCH (08:57)
[2020-07-20] MEDS: CLOPIDOGREL 75 MG TABLET PO SCH (08:57)
[2020-07-20] MEDS: FUROSEMIDE 20 MG TABLET PO SCH (08:57)
[2020-07-20] MEDS: POTASSIUM CHLORIDE 20 MEQ TAB.PRT.SR PO SCH (08:57)
[2020-07-20] MEDS: BENZTROPINE MESYLATE 0.5 MG TABLET PO SCH ×2 (08:57→16:49)
[2020-07-20] MEDS: SULFAMETH/TRIMETH 800/160 MG TABLET PO SCH ×2 (08:57→20:03)
[2020-07-20] MEDS: LISINOPRIL 10 MG TABLET PO SCH (08:58)
[2020-07-20] MEDS: HALOPERIDOL 5 MG TABLET PO SCH ×2 (08:58→16:49)
[2020-07-20] MEDS: METOPROLOL TARTRATE 25 MG TABLET PO SCH ×2 (08:58→16:50)
[2020-07-20] MEDS: CLONAZEPAM 0.5 MG TABLET PO SCH ×3 (08:59→16:49)
[2020-07-20] MEDS: CLOTRIMAZOLE 1% CREAM 30 GM TUBE TOP SCH ×2 (09:01→16:51)
--- NOTE | 2020-07-20 09:45 | NUR ---
Received pt sitting in [place] [address]-2, able to make needs known. No acute distress noted, no complaints of pain or discomfort. Denies SI/HI/VH/AH. Pt is able to verbally contract for safety. Pt adherent with medications and care. Reassurance and redirection provided as needed. Fall precautions and clutter free environment ensured. Will continue to monitor.
[2020-07-20] MEDS: INSULIN REGULAR, HUMAN 300 UNIT/3 ML VIAL SQ PRN ×2 (12:26→17:19)
[2020-07-20 16:43] VITALS: BP 123/56
--- NOTE | 2020-07-20 18:48 | NUR ---
EOSS: Pt in bed, awake. No acute distress noted, no complaints at this time. All needs met promptly. Pt remained adherent with medications and care. Continued to deny SI/HI/VH/AH. Pt verbally CFS. Safety ensured, fall precautions and clutter free environment maintained. Will endorse care to contour band saw operator vertical.
[2020-07-20 20:00] VITALS: BP 124/62
[2020-07-20] MEDS: TAMSULOSIN HCL 0.4 MG CAP.SR.24H PO SCH (20:03)
[2020-07-20] MEDS: ATORVASTATIN 20 MG TABLET PO SCH (20:03)
[2020-07-20] MEDS: INSULIN GLARGINE,HUM 300 UNITS/3 ML CARTRIDGE SQ SCH (20:04)
[2020-07-20] MEDS: TEMAZEPAM 7.5 MG CAPSULE PO PRN (22:24)
[2020-07-21] MEDS: BLOOD SUGAR DIAGNOSTIC 1 EACH STRIP VI SCH ×4 (06:37→20:26)
[2020-07-21 07:30] VITALS: BP 110/55
[2020-07-21] MEDS: glipiZIDE 5 MG TABLET PO SCH ×2 (08:28→16:32)
[2020-07-21] MEDS: ASPIRIN 81 MG TAB.CHEW PO SCH (08:28)
[2020-07-21] MEDS: LISINOPRIL 10 MG TABLET PO SCH (08:28)
[2020-07-21] MEDS: HALOPERIDOL 5 MG TABLET PO SCH ×2 (08:28→16:32)
[2020-07-21] MEDS: CLONAZEPAM 0.5 MG TABLET PO SCH ×3 (08:28→16:32)
[2020-07-21] MEDS: METOPROLOL TARTRATE 25 MG TABLET PO SCH ×2 (08:28→16:32)
[2020-07-21] MEDS: DIVALPROEX 500 MG TABLET.DR PO SCH ×2 (08:28→20:25)
[2020-07-21] MEDS: BENZTROPINE MESYLATE 0.5 MG TABLET PO SCH ×2 (08:28→16:32)
[2020-07-21] MEDS: POTASSIUM CHLORIDE 20 MEQ TAB.PRT.SR PO SCH (08:28)
[2020-07-21] MEDS: CLOPIDOGREL 75 MG TABLET PO SCH (08:28)
[2020-07-21] MEDS: SULFAMETH/TRIMETH 800/160 MG TABLET PO SCH ×2 (08:28→20:25)
[2020-07-21] MEDS: FUROSEMIDE 20 MG TABLET PO SCH (08:28)
[2020-07-21] MEDS: CLOTRIMAZOLE 1% CREAM 30 GM TUBE TOP SCH ×2 (08:29→16:32)
[2020-07-21] MEDS: INSULIN REGULAR, HUMAN 300 UNIT/3 ML VIAL SQ PRN ×2 (11:36→16:38)
--- NOTE | 2020-07-21 14:32 | NUR ---
B[facility] Individual Therapy Note: SW met with patient to provide brief individual counseling to address patient's presenting problem of labile mood. Patient presents euthymic mood and congruent affect. Patient is calm and cooperative with care. Patient is not very verbally expressive with his feelings but is able to verbalize his needs. SW will continue to remain available for patient for ongoing supportive counseling.
--- NOTE | 2020-07-21 15:17 | NUR ---
BARRINGTON Family Contact: BARRINGTON spoke with patient's , Kaitlynn ([phone]) and discussed discharge plan for next week back to [facility]. Kaitlynn is agreeable with the discharge plan. Kaitlynn wants to possibly brings clothes for the patient before he is discharged. BARRINGTON provided Kaitlynn patient's current treatment plan.
[2020-07-21 16:35] VITALS: BP 118/61
--- NOTE | 2020-07-21 18:05 | NUR ---
noted that patient Left lower ext appears to be red and warm to touch patient denies pain , and VS WNL , Temp at 97.5, called and spoke with BRIDGER giraldo , BRIDGER Giraldo will see the patient tomorrow, will continue follow up
[2020-07-21 20:19] VITALS: BP 108/56
[2020-07-21 20:20] VITALS: BP 114/66
[2020-07-21] MEDS: ATORVASTATIN 20 MG TABLET PO SCH (20:25)
[2020-07-21] MEDS: TAMSULOSIN HCL 0.4 MG CAP.SR.24H PO SCH (20:26)
[2020-07-21] MEDS: INSULIN REGULAR, HUMAN 300 UNITS/3 ML VIAL SQ PRN (20:29)
[2020-07-21] MEDS: INSULIN GLARGINE,HUM 300 UNITS/3 ML CARTRIDGE SQ SCH (20:30)
[2020-07-22] MEDS: TEMAZEPAM 7.5 MG CAPSULE PO PRN ×2 (00:06→21:23)
[2020-07-22] MEDS: BLOOD SUGAR DIAGNOSTIC 1 EACH STRIP VI SCH ×4 (06:03→20:36)
--- NOTE | 2020-07-22 06:35 | NUR ---
NSG: Remain calm and cooperative with medications and care. Pt slept 2 hours through the night after Restoril 7.5 mg po given. Pt tolerated all medications well. Continue plan of care.
[2020-07-22 07:30] VITALS: BP 129/85
--- NOTE | 2020-07-22 07:31 | NUR ---
PT RECEIVED SITTING UP ON FELICITY CHAIR. PLEASANT UPON APPROACH. CALM AND COOPERATIVE. COMPLIANT WITH MEDICATIONS AND CARE. NO AGGRESSIVE OR COMBATIVE BEHAVIOR NOTED.NOTED REDNESS ON LEFT LOWER EXTREMITIES , SEEN BY BRASS AND WIND INSTRUMENT REPAIRER DUSTIN, WITH ORDERS MADE , CARRIED OUT ORDERS , WILL CONTINUE MONITOR
[2020-07-22] MEDS: glipiZIDE 5 MG TABLET PO SCH ×2 (08:06→16:06)
[2020-07-22] MEDS: SULFAMETH/TRIMETH 800/160 MG TABLET PO SCH (08:15)
[2020-07-22] MEDS: BENZTROPINE MESYLATE 0.5 MG TABLET PO SCH ×2 (08:15→16:08)
[2020-07-22] MEDS: ASPIRIN 81 MG TAB.CHEW PO SCH (08:15)
[2020-07-22] MEDS: HALOPERIDOL 5 MG TABLET PO SCH ×2 (08:15→16:07)
[2020-07-22] MEDS: POTASSIUM CHLORIDE 20 MEQ TAB.PRT.SR PO SCH (08:15)
[2020-07-22] MEDS: FUROSEMIDE 20 MG TABLET PO SCH (08:15)
[2020-07-22] MEDS: DIVALPROEX 500 MG TABLET.DR PO SCH ×2 (08:16→20:23)
[2020-07-22] MEDS: CLONAZEPAM 0.5 MG TABLET PO SCH ×3 (08:16→16:07)
[2020-07-22] MEDS: CLOPIDOGREL 75 MG TABLET PO SCH (08:16)
[2020-07-22] MEDS: METOPROLOL TARTRATE 25 MG TABLET PO SCH ×2 (08:17→16:08)
[2020-07-22] MEDS: LISINOPRIL 10 MG TABLET PO SCH (08:18)
[2020-07-22] MEDS: CLOTRIMAZOLE 1% CREAM 30 GM TUBE TOP SCH ×2 (08:18→16:08)
[2020-07-22] MEDS: CIPROFLOXACIN HCL 250 MG TABLET PO SCH ×2 (10:24→20:23)
[2020-07-22] MEDS: ACETAMINOPHEN 325 MG TABLET PO PRN (11:21)
[2020-07-22] MEDS: INSULIN REGULAR, HUMAN 300 UNIT/3 ML VIAL SQ PRN ×2 (11:27→16:30)
[2020-07-22 16:00] VITALS: BP 110/47
--- NOTE | 2020-07-22 17:55 | NUR ---
PATIENT HAVING SOME EPISODES OF CONFUSIONS, POOR INSIGHTS AND POOR MEMORY, PRE OCCUPIED ON HIS , , PATIENT ASSISTED WITH ADL, VIDEOCALL WITH WAS DONE, PATIENT HAD A GOOD CONVERSATION, MONITORED [id number] FOR SAFETY, NOTED DISCOLORATION ON LEFT LOWER EXT, WARM TO TOUCH, NOTIFIED YARD WORKER DUSTIN, WITH ORDERS FOR DOPPLER ULTRASOUND, CONTINUE MONITOR AND FOLLOW UP ON PATIENTS CONDITION, ENDORSED TO NEXT SHIFT
[2020-07-22 20:17] VITALS: BP 135/60
[2020-07-22] MEDS: ATORVASTATIN 20 MG TABLET PO SCH (20:23)
--- NOTE | 2020-07-22 20:30 | NUR ---
GPS: patient Left lower ext appears to be red and warm to touch patient denies pain , and VS WNL , Temp at 98.0 , ARCGIS DEVELOPER came and assessed the patient, elevated left leg on pillow. continue plan of care.
[2020-07-22] MEDS: INSULIN REGULAR, HUMAN 300 UNITS/3 ML VIAL SQ PRN (20:38)
[2020-07-22] MEDS: CLONAZEPAM 0.5 MG TABLET PO PRN (20:41)
[2020-07-22] MEDS: TAMSULOSIN HCL 0.4 MG CAP.SR.24H PO SCH (20:41)
[2020-07-22] MEDS: INSULIN GLARGINE,HUM 300 UNITS/3 ML CARTRIDGE SQ SCH (20:45)
[2020-07-22] MEDS: LINEZOLID 600 MG TABLET PO SCH (21:00)
--- NOTE | 2020-07-22 22:28 | NUR ---
patient uncooperative, refused venous doppler
[2020-07-23] MEDS: CLONAZEPAM 0.5 MG TABLET PO PRN ×2 (05:02→20:47)
[2020-07-23] MEDS ORDERED: HALOPERIDOL LACTATE 5 MG/1 ML VIAL IM STA (05:28)
[2020-07-23] MEDS ORDERED: diphenhydrAMINE 50 MG/1 ML VIAL IV STA (05:28)
[2020-07-23] MEDS ORDERED: LORAZEPAM 2 MG/1 ML VIAL IM STA (05:28)
--- NOTE | 2020-07-23 05:51 | NUR ---
GPS: Patient is screaming and yelling loud. banging on the edy chair table. calling nurses son of bitches. refused klonopin po prn for agitation. jolly Kruse called. Ativan 1 mg Haldol 5 mg and Benadryl 25 mg im x1 given. patient is sitting up in edy chair now continue monitoring for safety.
--- NOTE | 2020-07-23 06:00 | NUR ---
NSG: Remain uncooperative with nursing care. refused Doppler us for left leg. refused Klonopin po prn for agitation.Pt slept 3.30 hours through the night after Restoril 7.5 mg po given. Pt tolerated all medications well. Continue plan of care.
[2020-07-23] MEDS: BLOOD SUGAR DIAGNOSTIC 1 EACH STRIP VI SCH ×4 (06:26→20:38)
[2020-07-23 06:33] VITALS: BP 111/60
--- NOTE | 2020-07-23 06:48 | NUR ---
PATIENT IS RESTING IN FELICITY CHAIR COMFORTABLY. NO AGITATION NOTED AT THIS TIME. V/S WNL. LEFT LOWER LEG STILL SWELLING RED AND WARM TO TOUCH.
[2020-07-23 07:30] VITALS: BP 102/52
[2020-07-23] MEDS: glipiZIDE 5 MG TABLET PO SCH ×4 (07:30→17:08)
--- NOTE | 2020-07-23 07:30 | NUR ---
Received patient sitting in edy chair near nursing station. Compliant with his PO medications and insulin. Patient is Confused and forgetful. Poor insight to present situation. Safety measures implemented. Frequent monitoring in place. Will continue to monitor.
[2020-07-23 07:49] LABS: BASOPHILS # (AUTO) 0.2 K/uL (0.0-8.0); BASOPHILS % (AUTO) 3.1 % (0.0-2.0); EOSINOPHILS # (AUTO) 0.2 K/uL (0.0-0.7); EOSINOPHILS % (AUTO) 3.3 % (0.0-7.0); HEMATOCRIT 38.1 % (36.7-47.1); HEMOGLOBIN 12.6 g/dL (12.5-16.3); LYMPHOCYTES # (AUTO) 1.1 K/uL (20.0-40.0); LYMPHOCYTES % (AUTO) 16.4 % (20.5-51.5); MEAN CORPUSCULAR HEMOGLOBIN 29.2 uug (23.8-33.4); MEAN CORPUSCULAR HGB CONC 33 g/dL (32.5-36.3); MEAN CORPUSCULAR VOLUME 88.2 fL (73.0-96.2); MONOCYTES # (AUTO) 0.9 K/uL (2.0-10.0); MONOCYTES % (AUTO) 13.1 % (0.0-11.0); NEUTROPHILS # (AUTO) 4.2 K/uL (1.8-8.9); NEUTROPHILS % (AUTO) 64.1 % (38.5-71.5); PLATELET COUNT (AUTO) 312 K/uL (152-348); RED BLOOD CELL COUNT(AUTO) 4.33 MIL/uL (4.06-5.63); WHITE BLOOD COUNT (AUTO) 6.5 K/uL (3.6-10.2)
[2020-07-23] MEDS: INSULIN REGULAR, HUMAN 300 UNIT/3 ML VIAL SQ PRN ×3 (07:51→17:16)
[2020-07-23 08:03] LABS: CARBON DIOXIDE 23 mmol/L (21-32); CHLORIDE 99 mmol/L (98-107); CREATININE 1.8 mg/dL (0.6-1.3); GLUCOSE 251 mg/dL (74-106); POTASSIUM 4.6 mmol/L (3.5-5.1); UREA NITROGEN, BLOOD 29 mg/dL (7-18)
[2020-07-23] MEDS: POTASSIUM CHLORIDE 20 MEQ TAB.PRT.SR PO SCH ×3 (08:33→12:26)
[2020-07-23] MEDS: ASPIRIN 81 MG TAB.CHEW PO SCH ×3 (08:33→12:25)
[2020-07-23] MEDS: BENZTROPINE MESYLATE 0.5 MG TABLET PO SCH ×4 (08:33→17:09)
[2020-07-23] MEDS: DIVALPROEX 500 MG TABLET.DR PO SCH ×4 (08:33→20:36)
[2020-07-23] MEDS: CLOPIDOGREL 75 MG TABLET PO SCH ×3 (08:33→12:26)
[2020-07-23] MEDS: HALOPERIDOL 5 MG TABLET PO SCH ×4 (08:33→17:09)
[2020-07-23] MEDS: FUROSEMIDE 20 MG TABLET PO SCH ×3 (08:33→12:26)
[2020-07-23] MEDS: LINEZOLID 600 MG TABLET PO SCH ×4 (08:33→20:37)
[2020-07-23] MEDS: CLONAZEPAM 0.5 MG TABLET PO SCH ×5 (08:34→17:10)
[2020-07-23] MEDS: METOPROLOL TARTRATE 25 MG TABLET PO SCH ×3 (08:35→17:12)
[2020-07-23] MEDS: LISINOPRIL 10 MG TABLET PO SCH (08:35)
[2020-07-23] MEDS: CLOTRIMAZOLE 1% CREAM 30 GM TUBE TOP SCH ×2 (08:36→17:13)
[2020-07-23] MEDS ORDERED: INSULIN REGULAR, HUMAN 300 UNIT/3 ML VIAL SQ PRN (09:00)
[2020-07-23] MEDS ORDERED: DEXTROSE 50% 50 ML DISP.SYRIN IV PRN ×2 (09:00→09:45)
[2020-07-23] MEDS ORDERED: BLOOD SUGAR DIAGNOSTIC 1 EACH STRIP VI SCH (09:00)
--- NOTE | 2020-07-23 10:00 | NUR ---
Medication not given to patient because he is asleep. Insulin not given because patient is sleeping and has not eaten breakfast. BRIDGER Pickett discontinued the mild and moderate insulin scale and changed it to a aggressive scale. Unable to go back in and undo the insulin that was previously scanned and not given because patient remains asleep. Will continue to monitor. Addendum: 07/23/20 at 1536 by LACEY FRANK RN Was able to undo the insulin administration even thought medication was already discontinued. This is documented in eMAR.
--- NOTE | 2020-07-23 12:30 | NUR ---
Patient is now awake and is in with radiology for duplex venous of the left lower extremity. Patient left lower extremity was edematous, with erythema and warm to the touch. MD is already aware. Awaiting results of the Duplex. Will continue to monitor.
--- NOTE | 2020-07-23 13:09 | NUR ---
1300 Klonopin not administered because it is too soon to give. Patient was asleep all morning and was not able to take his medications. Gave them once patient woke up. Will administer the next scheduled dose. Will continue to monitor.
[2020-07-23 16:00] VITALS: BP 125/66
--- NOTE | 2020-07-23 18:54 | NUR ---
Patient left resting in bed. No sign of distress noted. All medications given as ordered. Patient denies SI and OCONNELL. Patient was mostly compliant with care this shift. Safety precautions are in place. Will endorse to the oncoming nurse.
[2020-07-23 20:08] VITALS: BP 106/62
[2020-07-23] MEDS: ATORVASTATIN 20 MG TABLET PO SCH (20:37)
[2020-07-23] MEDS: TAMSULOSIN HCL 0.4 MG CAP.SR.24H PO SCH (20:37)
[2020-07-23] MEDS: INSULIN REGULAR, HUMAN 300 UNITS/3 ML VIAL SQ PRN (20:40)
[2020-07-23] MEDS: INSULIN GLARGINE,HUM 300 UNITS/3 ML CARTRIDGE SQ SCH (20:41)
[2020-07-23] MEDS: TEMAZEPAM 7.5 MG CAPSULE PO PRN (21:52)
[2020-07-24] MEDS: CLONAZEPAM 0.5 MG TABLET PO PRN ×2 (03:44→10:48)
--- NOTE | 2020-07-24 03:58 | NUR ---
Received patient last night, awake, confused and hollering very loud . Facial Operator cleaned patient up, turned and positioned him for comfort and gave him a PRN medication for anxiety. This patient slept a few hours the begun again yelling " Help I have been kidnapped ". Again technical proposal writer provided care, snack and reassurance with little effect. Constant reorientation to the situation provided with patient slinging constant insults and threats at the staff. Patients behavior is upsetting the unit. Another PRN was due and administered. Continuing to monitor patients behavior escalation closely and monitor for safety at this time.
[2020-07-24] MEDS: ACETAMINOPHEN 325 MG TABLET PO PRN ×2 (04:28→22:31)
[2020-07-24] MEDS: BLOOD SUGAR DIAGNOSTIC 1 EACH STRIP VI SCH ×4 (06:21→21:08)
--- NOTE | 2020-07-24 06:24 | NUR ---
Patient continued to yell and insult everyone he came in contact with. Construction Lineman got patient out of bed and put him near the station in order to calm patient down. This did not work and patient put back to bed per his request. Total sleep hours 4.45. Patient up early this am and back to yelling. Patient continues to be confused and paranoid, despite reorientation and reassurance. Monitoring for safety at this time.
[2020-07-24] MEDS ORDERED: MAGNESIUM HYDROXIDE 30 ML LIQUID UDC PO PRN (07:00)
[2020-07-24 07:30] VITALS: BP 133/67
[2020-07-24] MEDS: INSULIN REGULAR, HUMAN 300 UNIT/3 ML VIAL SQ PRN ×3 (08:32→16:57)
[2020-07-24] MEDS: glipiZIDE 5 MG TABLET PO SCH ×2 (08:36→16:56)
[2020-07-24] MEDS: CLONAZEPAM 0.5 MG TABLET PO SCH ×3 (08:36→16:53)
--- NOTE | 2020-07-24 09:00 | NUR ---
PATIENT RECEIVED IN BED AND THEN WAS ASSISTED UP TO THE BATHROOM AND THEN BACK TO THE FELICITY/CHAIR AND HE IS COMPLIANT WITH MEDICATIONS AND CARE AT THIS TIME WILL CONTINUE TO OBSERVE.
--- NOTE | 2020-07-24 09:53 | NUR ---
[facility] SNF Referral: BARRINGTON faxed patient's referral packet to [facility] for review and possible placement (fax: [phone]) attention to Vel. Addendum: 07/24/20 at 1517 by DEB HUTCHISON Patient is denied for placement from [facility]. Vel also stated that he sent patient's referrals to [facility] and [facility] for review and patient got denied as well due to aggressive behaviors.
[2020-07-24] MEDS: FUROSEMIDE 20 MG TABLET PO SCH (10:23)
[2020-07-24] MEDS: BENZTROPINE MESYLATE 0.5 MG TABLET PO SCH ×2 (10:23→16:53)
[2020-07-24] MEDS: CLOPIDOGREL 75 MG TABLET PO SCH (10:23)
[2020-07-24] MEDS: HALOPERIDOL 5 MG TABLET PO SCH ×2 (10:23→16:53)
[2020-07-24] MEDS: ASPIRIN 81 MG TAB.CHEW PO SCH (10:24)
[2020-07-24] MEDS: POTASSIUM CHLORIDE 20 MEQ TAB.PRT.SR PO SCH (10:24)
[2020-07-24] MEDS: METOPROLOL TARTRATE 25 MG TABLET PO SCH ×2 (10:24→16:54)
[2020-07-24] MEDS: CLOTRIMAZOLE 1% CREAM 30 GM TUBE TOP SCH ×2 (10:25→16:54)
[2020-07-24] MEDS: LINEZOLID 600 MG TABLET PO SCH ×2 (10:25→21:07)
[2020-07-24] MEDS: DIVALPROEX 500 MG TABLET.DR PO SCH ×2 (10:26→21:08)
--- NOTE | 2020-07-24 10:48 | NUR ---
KLONOPIN PRN ORDER GIVEN IN ADDITION TO THE ROUTINE DOSES PATIENT IS SCREAMING BANGING ON THE TABLE AND UNABLE TO REDIRECT AT THIS TIME.WILL CONTINUE TO OBSERVE AND PROVIDE SAFE AND THERAPEUTIC ENVIRONMENT AT ALL TIMES
[2020-07-24 15:15] VITALS: BP 134/66
--- NOTE | 2020-07-24 15:17 | NUR ---
SW Individual Therapy Note: SW met with patient to provide brief individual counseling to address patient's presenting problem of labile mood. Patient has become a little more agitated and aggressive with staff. Patient is unable to express his needs appropriately. Patient required more redirection and reality orientation. SW encouraged patient to share his concerns in a calm and cooperative demeanor. SW will continue to remain available for patient and provide ongoing supportive counseling.
--- NOTE | 2020-07-24 15:47 | NUR ---
[facility] SNF Referral: BARRINGTON faxed patient's referral packet to [facility] for review and possible placement (fax: [phone]) attention to Mercedes
--- NOTE | 2020-07-24 18:00 | NUR ---
ALERT BUT DISORIENTED SEATING QUIET AND CALM AT THIS TIME LEFT LEG REMAIN SWOLLEN AND RED REMAIN ON ATB ORDERED WITH NO ADVERSE OR ALLERGIC REACTIONS AT THIS TIME WILL CONTINUE TO OBSERVE.
[2020-07-24] MEDS ORDERED: HALOPERIDOL LACTATE 5 MG/1 ML VIAL IM STA (19:42)
[2020-07-24] MEDS ORDERED: LORAZEPAM 2 MG/1 ML VIAL IM STA (19:42)
[2020-07-24] MEDS ORDERED: diphenhydrAMINE 50 MG/1 ML VIAL IM STA (19:42)
[2020-07-24 20:00] VITALS: BP_SYST 118; BP_SYST 126; BP_DIAS 67; BP_DIAS 75
--- NOTE | 2020-07-24 20:00 | NUR ---
CHEMICAL RESTRAIN: RECEIVED PATIENT IN THE HALLWAY SITTING IN A ALBERTO CHAIR, HE WAS NOTED RESTLESS, AGITATED, YELLING, SCREAMING, CURSING, DELUSIONAL, PARANOID IDEATION. MULTIPLE REDIRECTION GIVEN. NEEDS WERE MET; HOWEVER, HE CONTINUE RESTLESS, YELLING, CURSING, AGGRESSIVE BX TOWARD STAFF. WAS NOTIFY AND NEW ORDER OBTAINED TO ADMINISTER ATIVAN 2MG IM; BENADRYL 50 MG IM AND HALDOL 5MG IM. ORDER NOTED AND CARRIED OUT. WILL CONTINUE TO MONITOR.
[2020-07-24 20:30] VITALS: BP 126/75
--- NOTE | 2020-07-24 21:00 | NUR ---
PATIENT NOTED LESS IRRITABLE, LESS AGGRESSIVE, CONTINUE YELLING AT TIMES. HE IS REFUSING QHS MEDICATIONS. V/S STABLE. WILL CONTINUE TO MONITOR.
[2020-07-24] MEDS: ATORVASTATIN 20 MG TABLET PO SCH (21:07)
[2020-07-24] MEDS: TAMSULOSIN HCL 0.4 MG CAP.SR.24H PO SCH (21:07)
[2020-07-24] MEDS: INSULIN REGULAR, HUMAN 300 UNITS/3 ML VIAL SQ PRN (22:22)
[2020-07-24] MEDS: INSULIN GLARGINE,HUM 300 UNITS/3 ML CARTRIDGE SQ SCH (22:29)
--- NOTE | 2020-07-24 22:30 | NUR ---
PATIENT NOTED LESS IRRITABLE. OCCASIONAL YELLING. HE WAS ABLE TO COMPLY WITH [facility] MEDICATION REGIMENT. PO FLUIDS AND SNACKS WERE GIVEN TO PATIENT. HE WAS TAKEN TO THE BATHROOM AND IS NOW IN BED. WILL CONTINUE TO MONITOR.
[2020-07-24] MEDS: TEMAZEPAM 7.5 MG CAPSULE PO PRN (22:48)
--- NOTE | 2020-07-24 22:50 | NUR ---
PATIENT NOTED YELLING AT TIME. NEEDS WERE MET; HOWEVER, HE CONTINUE WITH OCCASIONAL YELLING. TYLENOL 650MG PO PRN AND TEMAZEPAM 7.5MG PO PRN WERE GIVEN, WILL CONTINUE TO MONITOR.
--- NOTE | 2020-07-24 23:55 | NUR ---
PATIENT NOTED SLEEPING COMFORTABLE IN HIS ROOM. WILL CONTINUE TO MONITOR.
[2020-07-25] MEDS: ACETAMINOPHEN 325 MG TABLET PO PRN (05:57)
[2020-07-25] MEDS: CLONAZEPAM 0.5 MG TABLET PO PRN ×3 (05:57→21:14)
[2020-07-25] MEDS: BLOOD SUGAR DIAGNOSTIC 1 EACH STRIP VI SCH ×5 (06:53→21:08)
--- NOTE | 2020-07-25 06:54 | NUR ---
PATIENT SLEPT FOR APPROX. 6 HRS THROUGH THE NIGHT. ACCUCHECK INITIALLY WAS 61. ORANGE JUICE WAS GIVEN AND IN WENT UP TO 85. PATIENT NOTED HYPERVERBAL, KLONOPIN 0.5 MG PO PRN WAS GIVEN. WITH TYLENOL 650MG PO PRN
[2020-07-25 07:14] LABS: BASOPHILS # (AUTO) 0.1 K/uL (0.0-8.0); EOSINOPHILS # (AUTO) 0.3 K/uL (0.0-0.7); EOSINOPHILS % (AUTO) 3.8 % (0.0-7.0); HEMATOCRIT 38.9 % (36.7-47.1); HEMOGLOBIN 12.9 g/dL (12.5-16.3); LYMPHOCYTES # (AUTO) 1.8 K/uL (20.0-40.0); LYMPHOCYTES % (AUTO) 19.9 % (20.5-51.5); MEAN CORPUSCULAR HEMOGLOBIN 29.3 uug (23.8-33.4); MEAN CORPUSCULAR HGB CONC 33 g/dL (32.5-36.3); MEAN CORPUSCULAR VOLUME 88.4 fL (73.0-96.2); MONOCYTES # (AUTO) 1.3 K/uL (2.0-10.0); MONOCYTES % (AUTO) 15.1 % (0.0-11.0); NEUTROPHILS # (AUTO) 5.3 K/uL (1.8-8.9); NEUTROPHILS % (AUTO) 60.2 % (38.5-71.5); PLATELET COUNT (AUTO) 322 K/uL (152-348); RED BLOOD CELL COUNT(AUTO) 4.39 MIL/uL (4.06-5.63); WHITE BLOOD COUNT (AUTO) 8.8 K/uL (3.6-10.2)
[2020-07-25 07:30] VITALS: BP 120/48
[2020-07-25] MEDS: ASPIRIN 81 MG TAB.CHEW PO SCH (08:27)
[2020-07-25] MEDS: CLONAZEPAM 0.5 MG TABLET PO SCH ×3 (08:27→16:52)
[2020-07-25] MEDS: FUROSEMIDE 20 MG TABLET PO SCH (08:27)
[2020-07-25] MEDS: CLOPIDOGREL 75 MG TABLET PO SCH (08:27)
[2020-07-25] MEDS: HALOPERIDOL 5 MG TABLET PO SCH ×3 (08:27→16:53)
[2020-07-25] MEDS: BENZTROPINE MESYLATE 0.5 MG TABLET PO SCH ×2 (08:27→16:53)
[2020-07-25] MEDS: POTASSIUM CHLORIDE 20 MEQ TAB.PRT.SR PO SCH (08:28)
[2020-07-25] MEDS: METOPROLOL TARTRATE 25 MG TABLET PO SCH ×2 (08:29→17:16)
[2020-07-25] MEDS: glipiZIDE 5 MG TABLET PO SCH ×2 (08:34→16:53)
[2020-07-25] MEDS: DIVALPROEX 500 MG TABLET.DR PO SCH (08:34)
[2020-07-25] MEDS: LINEZOLID 600 MG TABLET PO SCH ×2 (08:35→21:07)
[2020-07-25] MEDS: CLOTRIMAZOLE 1% CREAM 30 GM TUBE TOP SCH ×2 (08:35→17:16)
--- NOTE | 2020-07-25 09:57 | NUR ---
patient noted with yelling and screaming behavior, left message for dr azevedo
[2020-07-25] MEDS: INSULIN REGULAR, HUMAN 300 UNIT/3 ML VIAL SQ PRN (11:34)
[2020-07-25] MEDS ORDERED: OLANZAPINE 10 MG VIAL IM ONE (15:15)
[2020-07-25] MEDS ORDERED: LORAZEPAM 2 MG/1 ML VIAL IM ONE (15:15)
[2020-07-25 15:18] LABS: BAND % (MANUAL) 2 % (0-10); EOSINOPHILS % (MANUAL) 4 % (0-8); LYMPHOCYTES % (MANUAL) 19 % (20-40); MONOCYTES % (MANUAL) 16 % (2-10); NEUTROPHILS % (MANUAL) 59 % (42-75)
--- NOTE | 2020-07-25 15:34 | NUR ---
patient very aggressive, combative, throwing stuffs, standing on the bed, order received for Zyprexa, and ativan IM, administered as ordered, continue to monitor patient
[2020-07-25 16:00] VITALS: BP 122/59
[2020-07-25] MEDS: OLANZAPINE ZYDIS 5 MG TAB.RAPDIS PO SCH (18:52)
--- NOTE | 2020-07-25 19:20 | NUR ---
cooperative with meds, however gets very aggressive at times, denied suicidal thoughts, monitored, and kept safe per unit protocol
[2020-07-25] MEDS: TAMSULOSIN HCL 0.4 MG CAP.SR.24H PO SCH (21:07)
[2020-07-25] MEDS: ATORVASTATIN 10 MG TABLET PO SCH (21:07)
[2020-07-25] MEDS: INSULIN REGULAR, HUMAN 300 UNITS/3 ML VIAL SQ PRN (21:11)
[2020-07-25] MEDS: INSULIN GLARGINE,HUM 300 UNITS/3 ML CARTRIDGE SQ SCH (21:12)
[2020-07-25 21:14] VITALS: BP 118/62
--- NOTE | 2020-07-25 21:21 | NUR ---
Received pt sitting in the edy chair in the hallway. Pt yelling occasionally, hyperverbal. No acute distress noted. Due meds given as ordered. Accucheck 202, insulin given as per sliding scale. Pt high risk for fall. Safety measures maintained. Will continue to monitor.
[2020-07-26] MEDS: ACETAMINOPHEN 325 MG TABLET PO PRN ×3 (04:23→20:09)
[2020-07-26] MEDS: CLONAZEPAM 0.5 MG TABLET PO PRN ×2 (04:23→19:45)
[2020-07-26] MEDS: BLOOD SUGAR DIAGNOSTIC 1 EACH STRIP VI SCH ×4 (06:37→20:07)
[2020-07-26 07:50] LABS: BASOPHILS # (AUTO) 0.1 K/uL (0.0-8.0); BASOPHILS % (AUTO) 0.8 % (0.0-2.0); EOSINOPHILS # (AUTO) 0.2 K/uL (0.0-0.7); EOSINOPHILS % (AUTO) 3.1 % (0.0-7.0); HEMATOCRIT 36.5 % (36.7-47.1); HEMOGLOBIN 12.2 g/dL (12.5-16.3); LYMPHOCYTES # (AUTO) 1.3 K/uL (20.0-40.0); LYMPHOCYTES % (AUTO) 18.9 % (20.5-51.5); MEAN CORPUSCULAR HEMOGLOBIN 29.5 uug (23.8-33.4); MEAN CORPUSCULAR HGB CONC 34 g/dL (32.5-36.3); MEAN CORPUSCULAR VOLUME 87.9 fL (73.0-96.2); MONOCYTES % (AUTO) 14.6 % (0.0-11.0); NEUTROPHILS # (AUTO) 4.4 K/uL (1.8-8.9); NEUTROPHILS % (AUTO) 62.6 % (38.5-71.5); PLATELET COUNT (AUTO) 303 K/uL (152-348); RED BLOOD CELL COUNT(AUTO) 4.15 MIL/uL (4.06-5.63); WHITE BLOOD COUNT (AUTO) 7.1 K/uL (3.6-10.2)
[2020-07-26 07:56] VITALS: BP 110/61
[2020-07-26 08:26] LABS: BILIRUBIN,TOTAL 0.4 mg/dL (0.2-1.0); CREATININE 1.3 mg/dL (0.6-1.3); MAGNESIUM 2.3 mg/dL (1.8-2.4); PHOSPHOROUS 3.7 mg/dL (2.5-4.9); POTASSIUM 4.2 mmol/L (3.5-5.1); TOTAL PROTEIN, SERUM 6.9 g/dL (6.4-8.2)
[2020-07-26] MEDS: LINEZOLID 600 MG TABLET PO SCH ×2 (08:53→20:06)
[2020-07-26] MEDS: ASPIRIN 81 MG TAB.CHEW PO SCH (08:53)
[2020-07-26] MEDS: CLOTRIMAZOLE 1% CREAM 30 GM TUBE TOP SCH ×2 (08:53→17:31)
[2020-07-26] MEDS: CLOPIDOGREL 75 MG TABLET PO SCH (08:53)
[2020-07-26] MEDS: BENZTROPINE MESYLATE 0.5 MG TABLET PO SCH ×2 (08:53→17:30)
[2020-07-26] MEDS: FUROSEMIDE 20 MG TABLET PO SCH (08:57)
[2020-07-26] MEDS: METOPROLOL TARTRATE 25 MG TABLET PO SCH ×2 (08:57→17:31)
[2020-07-26] MEDS: DIVALPROEX 500 MG TABLET.DR PO SCH ×3 (08:57→17:30)
[2020-07-26] MEDS: HALOPERIDOL 5 MG TABLET PO SCH ×3 (08:57→17:30)
[2020-07-26] MEDS: OLANZAPINE ZYDIS 5 MG TAB.RAPDIS PO SCH ×2 (08:57→17:31)
[2020-07-26] MEDS: POTASSIUM CHLORIDE 20 MEQ TAB.PRT.SR PO SCH (08:58)
[2020-07-26] MEDS: glipiZIDE 5 MG TABLET PO SCH ×2 (08:58→17:30)
[2020-07-26] MEDS: CLONAZEPAM 0.5 MG TABLET PO SCH ×3 (09:29→17:31)
[2020-07-26] MEDS: INSULIN REGULAR, HUMAN 300 UNIT/3 ML VIAL SQ PRN ×2 (12:17→17:35)
[2020-07-26 16:00] VITALS: BP 116/48
[2020-07-26] MEDS: TAMSULOSIN HCL 0.4 MG CAP.SR.24H PO SCH (20:06)
[2020-07-26] MEDS: ATORVASTATIN 10 MG TABLET PO SCH (20:06)
[2020-07-26] MEDS: INSULIN GLARGINE,HUM 300 UNITS/3 ML CARTRIDGE SQ SCH (20:10)
[2020-07-26] MEDS: INSULIN REGULAR, HUMAN 300 UNITS/3 ML VIAL SQ PRN (20:12)
[2020-07-26 20:36] VITALS: BP 127/67
[2020-07-26] MEDS: TEMAZEPAM 7.5 MG CAPSULE PO PRN (23:00)
[2020-07-27] MEDS: CLONAZEPAM 0.5 MG TABLET PO PRN ×2 (01:48→14:40)
[2020-07-27] MEDS: ACETAMINOPHEN 325 MG TABLET PO PRN ×2 (04:39→09:32)
[2020-07-27] MEDS: BLOOD SUGAR DIAGNOSTIC 1 EACH STRIP VI SCH ×3 (05:55→12:10)
--- NOTE | 2020-07-27 06:33 | NUR ---
PT SLEPT 5 H. PRESCRIBED MEDICATION GIVEN AND PT TOLERATED IT WELL. PT GIVEN KLONOPIN AT 1945H AND 0148H FOR RESTLESSNESS, AGITATION AND YELLING. PT GIVEN RESTORIL AT 2300H . PT GIVEN TYLENOL PRN AT 2009HAND 0439H FOR LEG PAIN. PT HAD EPISODES OF YELLING, CURSING OUT, ANXIOUS AND RESTLESS. PT NEEDS REDIRECTION. PT BLOOD SUGAR WAS 77.SAFETY AND COMFORT PROVIDED. ALL NEEDS ARE MET. WILL ENDORSE TO INCOMING NURSE FOR CONTINUITY OF CARE.
[2020-07-27 06:56] LABS: BASOPHILS # (AUTO) 0.1 K/uL (0.0-8.0); BASOPHILS % (AUTO) 0.6 % (0.0-2.0); EOSINOPHILS # (AUTO) 0.3 K/uL (0.0-0.7); EOSINOPHILS % (AUTO) 3.2 % (0.0-7.0); HEMATOCRIT 37.2 % (36.7-47.1); HEMOGLOBIN 12.3 g/dL (12.5-16.3); LYMPHOCYTES # (AUTO) 1.2 K/uL (20.0-40.0); LYMPHOCYTES % (AUTO) 11.4 % (20.5-51.5); MEAN CORPUSCULAR HEMOGLOBIN 29.3 uug (23.8-33.4); MEAN CORPUSCULAR HGB CONC 33 g/dL (32.5-36.3); MEAN CORPUSCULAR VOLUME 88.3 fL (73.0-96.2); MONOCYTES # (AUTO) 1.3 K/uL (2.0-10.0); NEUTROPHILS # (AUTO) 7.7 K/uL (1.8-8.9); NEUTROPHILS % (AUTO) 72.8 % (38.5-71.5); PLATELET COUNT (AUTO) 301 K/uL (152-348); RED BLOOD CELL COUNT(AUTO) 4.22 MIL/uL (4.06-5.63); WHITE BLOOD COUNT (AUTO) 10.5 K/uL (3.6-10.2)
[2020-07-27 07:30] VITALS: BP 123/62
--- NOTE | 2020-07-27 08:00 | NUR ---
On the gerichair, confused, yelling, redirected. Assisted with meal, due medications given
[2020-07-27] MEDS: ASPIRIN 81 MG TAB.CHEW PO SCH (09:00)
[2020-07-27] MEDS: BENZTROPINE MESYLATE 0.5 MG TABLET PO SCH (09:00)
[2020-07-27] MEDS: glipiZIDE 5 MG TABLET PO SCH (09:00)
[2020-07-27] MEDS: DIVALPROEX 500 MG TABLET.DR PO SCH ×2 (09:02→13:13)
[2020-07-27] MEDS: HALOPERIDOL 5 MG TABLET PO SCH ×2 (09:03→13:13)
[2020-07-27] MEDS: POTASSIUM CHLORIDE 20 MEQ TAB.PRT.SR PO SCH (09:03)
[2020-07-27] MEDS: CLOPIDOGREL 75 MG TABLET PO SCH (09:03)
[2020-07-27 09:04] VITALS: BP 123/62
[2020-07-27] MEDS: FUROSEMIDE 20 MG TABLET PO SCH (09:04)
[2020-07-27] MEDS: METOPROLOL TARTRATE 25 MG TABLET PO SCH (09:04)
[2020-07-27] MEDS: LINEZOLID 600 MG TABLET PO SCH (09:04)
[2020-07-27] MEDS: CLOTRIMAZOLE 1% CREAM 30 GM TUBE TOP SCH (09:04)
[2020-07-27] MEDS: OLANZAPINE ZYDIS 5 MG TAB.RAPDIS PO SCH (09:04)
[2020-07-27] MEDS: CLONAZEPAM 0.5 MG TABLET PO SCH ×2 (09:31→13:13)
--- NOTE | 2020-07-27 10:00 | NUR ---
Found on the floor after transferring to the bed 1 hour ago, saying I wanted to go to the bathroom. Noted abrasions on the left elbow. informed. Dr. Falcon informed. Assisted to the gerichair then to the bathroom
[2020-07-27] MEDS: INSULIN REGULAR, HUMAN 300 UNIT/3 ML VIAL SQ PRN (12:15)
[2020-07-27] MEDS ORDERED: HALOPERIDOL LACTATE 5 MG/1 ML VIAL IM ONE (13:15)
[2020-07-27] MEDS ORDERED: LORAZEPAM 2 MG/1 ML VIAL IM ONE (13:15)
[2020-07-27] MEDS ORDERED: diphenhydrAMINE 50 MG/1 ML VIAL IM ONE (13:15)
--- NOTE | 2020-07-27 13:30 | NUR ---
Patient yelling, verbally abusive, aggressive towards staff, unable to redirect. Dr. Vega informed with orders for IM injection. given and monitored per protocol
--- NOTE | 2020-07-27 16:19 | NUR ---
GPS Transfer Note and Discharge Plan: Patient was transferred from MHU to the Medical Floor due to Cellulitis of his left lower leg. Patient remains on his 5250 hold for Grave Disability. [place] [facility] [address] [place] [address] ([phone]) and can admit upon discharge from the hospital. SW spoke with [facility] public policy coordinator at [facility] who stated patient can admit to their facility when discharged from the hospital. Patient is alert and oriented x2, and is unable to plan for self-care, and denies any suicidal or homicidal ideation. Patient is aware and agreeable with discharge plans. Patient presents with irritated mood and congruent affect. Patient will continue to follow-up with his Psychiatrist Dr. Vega and Vacuum Repairer Dr. Borjas. Patients , Kaitlynn Garcia ([phone]) is aware and agreeable with discharge plans. Patient will require a Rapid Covid test day before discharge to SNF.
--- NOTE | 2020-07-27 16:30 | NUR ---
Sleeping. With discharge/transfer order to telemetry, report given to CN. Transferred via edy chair, picked up by RN and DIABETES SPECIALIST/Sitter in fair condition
[2020-07-27] MEDS ORDERED: GLIP5TAB13 PO (17:43)
[2020-07-27] MEDS ORDERED: BENZ0.5T43 PO (17:43)
[2020-07-27] MEDS ORDERED: TEMA7.5C PO (17:43)
[2020-07-27] MEDS ORDERED: MAGN400O6 PO (17:43)
[2020-07-27] MEDS ORDERED: CLON0.5T4 PO ×2 (17:43)
[2020-07-27] MEDS ORDERED: MAG355OR18 PO (17:43)
[2020-07-27] MEDS ORDERED: INSU100V7 SQ (17:43)
[2020-07-27] MEDS ORDERED: ASPI81TA31 PO (17:43)
[2020-07-27] MEDS ORDERED: POTA20TA10 PO (17:43)
[2020-07-27] MEDS ORDERED: OLAN5TAB30 PO (17:43)
[2020-07-27] MEDS ORDERED: CLOT15CR5 TP (17:43)
[2020-07-27] MEDS ORDERED: DIVA500T2 PO (17:43)
[2020-07-27] MEDS ORDERED: DEXT50DI8 IV (17:43)
[2020-07-27] MEDS ORDERED: HALO5TAB PO (17:43)
[2020-07-27] MEDS ORDERED: CLOP75TA33 PO (17:43)
[2020-07-27] MEDS ORDERED: METO75TA PO (17:43)
[2020-07-27] MEDS ORDERED: TAMS-3 PO (17:43)
[2020-07-27] MEDS ORDERED: FURO20TA4 PO (17:43)
[2020-07-27] MEDS ORDERED: ATOR10TA PO (17:43)
[2020-07-27] MEDS ORDERED: LINE600T15 PO (17:43)
[2020-07-27] MEDS ORDERED: ACET-2154 PO (17:43)
[2020-07-27] MEDS ORDERED: BLOO-1672 MC (17:45)
[2020-08-01] MEDS ORDERED: OLAN5TAB3 PO (12:54)
[2020-08-01] MEDS ORDERED: Insulin Glargine,Hum SQ (12:54)
[2020-08-01] MEDS ORDERED: INSU100V28 SQ (12:54)
== END 2020-07-27 19:03 | disposition short-term general hospital (02) | DRG 885 ==
LOC: ER 22:55 → GPS 07-12 00:20
PROVIDERS: ADMIT Psychiatry & Neurology Psychiatry; ATTEND Registered Nurse
DX: F39 Unspecified mood [affective] disorder (principal); F01.51 Vascular dementia, unspecified severity, with behavioral disturbance; N17.0 Acute kidney failure with tubular necrosis; I11.0 Hypertensive heart disease with heart failure; L03.116 Cellulitis of left lower limb; E22.2 Syndrome of inappropriate secretion of antidiuretic hormone; F23 Brief psychotic disorder; Z68.41 Body mass index [BMI] 40.0-44.9, adult; E44.0 Moderate protein-calorie malnutrition; F29 Unspecified psychosis not due to a substance or known physiological condition; S61.421A Laceration with foreign body of right hand, initial encounter; S61.412A Laceration without foreign body of left hand, initial encounter; W25.XXXA Contact with sharp glass, initial encounter; Y93.89 Activity, other specified; Y92.129 Unspecified place in nursing home as the place of occurrence of the external cause; Z79.02 Long term (current) use of antithrombotics/antiplatelets; E78.5 Hyperlipidemia, unspecified; Z20.822 Contact with and (suspected) exposure to COVID-19; E66.01 Morbid (severe) obesity due to excess calories; Z95.1 Presence of aortocoronary bypass graft; Z71.3 Dietary counseling and surveillance; I25.10 Atherosclerotic heart disease of native coronary artery without angina pectoris; N40.0 Benign prostatic hyperplasia without lower urinary tract symptoms; I50.9 Heart failure, unspecified; F32.9 Major depressive disorder, single episode, unspecified; Z79.4 Long term (current) use of insulin; Z79.82 Long term (current) use of aspirin; E11.9 Type 2 diabetes mellitus without complications
CPT/HCPCS: 36415; 70030-TC; 71045; 73080; 73130; 73590; 80164; 83735; 84100; 84443; 85025; 93005; A4663; G0480; J1200; J1630; J1815; J2060; J2358

== ENCOUNTER 2020-07-27 16:43 | Inpatient (IN) | payer MEDICARE, OTHER ==
[~2020-07-27] VITALS: Ht 167.6 cm; Wt 113.9 kg
[~2020-07-27 16:43] MED LIST changes: +ACET-2154 PO; +ASPI-1094 PO; +DEXT50VI3 IV; -FURO-151 PO; +FURO-152 PO; +GLIP2.5T16 PO; +MAG-55 PO; +MAGN400O6 PO; -METF-442 PO; +NEOM1PAC2 TP; +REGULAR INSULIN
[2020-07-27] MEDS ORDERED: CLON0.5T4 PO ×2 (17:43)
[2020-07-27] MEDS ORDERED: MAG355OR18 PO (17:43)
[2020-07-27] MEDS ORDERED: CLOT15CR5 TP (17:43)
[2020-07-27] MEDS ORDERED: OLAN5TAB30 PO (17:43)
[2020-07-27] MEDS ORDERED: DEXT50DI8 IV (17:43)
[2020-07-27] MEDS ORDERED: MAGN400O6 PO (17:43)
[2020-07-27] MEDS ORDERED: ACET-2154 PO (17:43)
[2020-07-27] MEDS ORDERED: INSU100V7 SQ (17:43)
[2020-07-27] MEDS ORDERED: TAMS-3 PO (17:43)
[2020-07-27] MEDS ORDERED: BENZ0.5T43 PO (17:43)
[2020-07-27] MEDS ORDERED: FURO20TA4 PO (17:43)
[2020-07-27] MEDS ORDERED: ASPI81TA31 PO (17:43)
[2020-07-27] MEDS ORDERED: POTA20TA10 PO (17:43)
[2020-07-27] MEDS ORDERED: METO75TA PO (17:43)
[2020-07-27] MEDS ORDERED: ATOR10TA PO (17:43)
[2020-07-27] MEDS ORDERED: DIVA500T2 PO (17:43)
[2020-07-27] MEDS ORDERED: CLOP75TA33 PO (17:43)
[2020-07-27] MEDS ORDERED: GLIP5TAB13 PO (17:43)
[2020-07-27] MEDS ORDERED: LINE600T15 PO (17:43)
[2020-07-27] MEDS ORDERED: TEMA7.5C PO (17:43)
[2020-07-27] MEDS ORDERED: HALO5TAB PO (17:43)
[2020-07-27] MEDS ORDERED: BLOO-1672 MC (17:45)
[2020-07-27] MEDS ORDERED: INSULIN REGULAR, HUMAN 300 UNITS/3 ML VIAL SQ PRN (18:00)
[2020-07-27] MEDS ORDERED: DEXTROSE 50% 50 ML DISP.SYRIN IV PRN (18:00)
[2020-07-27 20:00] VITALS: BP 140/76
[2020-07-27] MEDS ORDERED: VANCOMYCIN IV 2,000 MG in IV DEXTROSE 5% 500 ML IV ONE (20:00)
[2020-07-27] MEDS ORDERED: DEXTROSE 50% 50 ML DISP.SYRIN IV SCH (20:45)
[2020-07-27] MEDS ORDERED: LINEZOLID IV 600 MG in PREMIXED 1 EACH IV SCH (21:00)
[2020-07-27] MEDS: BLOOD SUGAR DIAGNOSTIC 1 EACH STRIP VI SCH (21:14)
[2020-07-27] MEDS: ATORVASTATIN 10 MG TABLET PO SCH (22:26)
[2020-07-27] MEDS: TAMSULOSIN HCL 0.4 MG CAP.SR.24H PO SCH (22:26)
[2020-07-27] MEDS ORDERED: INSULIN GLARGINE,HUM 300 UNITS/3 ML CARTRIDGE SQ ONE (22:57)
[2020-07-27] MEDS: INSULIN GLARGINE,HUM 300 UNITS/3 ML CARTRIDGE SQ SCH (22:59)
[2020-07-28] VITALS: BP 145/68
[2020-07-28] MEDS: TEMAZEPAM 7.5 MG CAPSULE PO PRN (00:32)
[2020-07-28 04:00] VITALS: BP 113/52
[2020-07-28] MEDS: BLOOD SUGAR DIAGNOSTIC 1 EACH STRIP VI SCH ×4 (06:31→20:21)
[2020-07-28] MEDS: glipiZIDE 5 MG TABLET PO SCH ×2 (06:31→16:29)
[2020-07-28 07:39] LABS: BASOPHILS # (AUTO) 0.1 K/uL (0.0-8.0); BASOPHILS % (AUTO) 0.5 % (0.0-2.0); EOSINOPHILS % (AUTO) 0.3 % (0.0-7.0); HEMATOCRIT 38.3 % (36.7-47.1); HEMOGLOBIN 12.8 g/dL (12.5-16.3); MEAN CORPUSCULAR HEMOGLOBIN 29.7 uug (23.8-33.4); MEAN CORPUSCULAR HGB CONC 33 g/dL (32.5-36.3); MEAN CORPUSCULAR VOLUME 89.1 fL (73.0-96.2); MONOCYTES # (AUTO) 0.8 K/uL (2.0-10.0); MONOCYTES % (AUTO) 7.8 % (0.0-11.0); NEUTROPHILS # (AUTO) 8.4 K/uL (1.8-8.9); NEUTROPHILS % (AUTO) 81.4 % (38.5-71.5); PLATELET COUNT (AUTO) 319 K/uL (152-348); WHITE BLOOD COUNT (AUTO) 10.3 K/uL (3.6-10.2)
[2020-07-28 08:07] LABS: BILIRUBIN,TOTAL 0.3 mg/dL (0.2-1.0); CREATININE 1.2 mg/dL (0.6-1.3); MAGNESIUM 2.2 mg/dL (1.8-2.4); POTASSIUM 4.4 mmol/L (3.5-5.1); TOTAL PROTEIN, SERUM 7.1 g/dL (6.4-8.2)
[2020-07-28 08:40] VITALS: BP 113/59
[2020-07-28] MEDS: METOPROLOL TARTRATE 25 MG TABLET PO SCH ×2 (08:59→16:31)
[2020-07-28] MEDS ORDERED: CLOTRIMAZOLE/BETAMET DIPROP CREAM 15 GM TUBE TP SCH (09:00)
[2020-07-28] MEDS: INSULIN REGULAR, HUMAN 300 UNIT/3 ML VIAL SQ PRN ×2 (09:01→11:45)
[2020-07-28] MEDS: ASPIRIN 81 MG TAB.CHEW PO SCH (09:03)
[2020-07-28] MEDS: FUROSEMIDE 20 MG TABLET PO SCH (09:03)
[2020-07-28] MEDS: OLANZAPINE 5 MG TABLET PO SCH ×2 (09:04→16:30)
[2020-07-28] MEDS: DIVALPROEX 500 MG TABLET.DR PO SCH ×3 (09:04→16:29)
[2020-07-28] MEDS: LISINOPRIL 10 MG TABLET PO SCH (09:04)
[2020-07-28] MEDS: HALOPERIDOL 5 MG TABLET PO SCH ×3 (09:05→16:29)
[2020-07-28] MEDS: CLOPIDOGREL 75 MG TABLET PO SCH (09:05)
[2020-07-28] MEDS: BENZTROPINE MESYLATE 0.5 MG TABLET PO SCH ×2 (09:05→16:29)
[2020-07-28] MEDS: CLONAZEPAM 0.5 MG TABLET PO SCH ×3 (09:06→16:30)
[2020-07-28] MEDS: CLOTRIMAZOLE/BETAMET DIPROP CREAM 15 GM TUBE TP SCH ×2 (11:49→20:23)
[2020-07-28 15:00] VITALS: BP 109/49
[2020-07-28] MEDS ORDERED: VANCOMYCIN IV 1,500 MG in IV DEXTROSE 5% 500 ML IV SCH ×2 (15:00→20:00)
[2020-07-28] MEDS ORDERED: LORAZEPAM 2 MG/1 ML VIAL IV ONE ×2 (15:30→19:45)
[2020-07-28] MEDS ORDERED: HALOPERIDOL LACTATE 5 MG/1 ML VIAL IM ONE (15:30)
[2020-07-28] MEDS ORDERED: diphenhydrAMINE 50 MG/1 ML VIAL IM ONE (15:30)
[2020-07-28] MEDS ORDERED: OLANZAPINE 10 MG VIAL IM ONE (19:45)
[2020-07-28 20:00] VITALS: BP 107/58
[2020-07-28] MEDS ORDERED: LORAZEPAM 2 MG/1 ML VIAL IM ONE (20:00)
[2020-07-28] MEDS: TAMSULOSIN HCL 0.4 MG CAP.SR.24H PO SCH (20:22)
[2020-07-28] MEDS: ATORVASTATIN 10 MG TABLET PO SCH (20:22)
[2020-07-28] MEDS: INSULIN GLARGINE,HUM 300 UNITS/3 ML CARTRIDGE SQ SCH (20:36)
[2020-07-28] MEDS ORDERED: CEFTRIAXONE 1 G VIAL ONE (22:22)
[2020-07-28] MEDS: CEFTRIAXONE 1 G in IV DEXTROSE 5% 50 ML IV SCH (22:31)
[2020-07-29] VITALS: BP 121/60
[2020-07-29] MEDS: TEMAZEPAM 7.5 MG CAPSULE PO PRN ×2 (01:41→22:09)
[2020-07-29] MEDS: ACETAMINOPHEN 325 MG TABLET PO PRN ×2 (01:41→22:09)
[2020-07-29 04:00] VITALS: BP 116/78
[2020-07-29] MEDS: BLOOD SUGAR DIAGNOSTIC 1 EACH STRIP VI SCH ×3 (06:31→16:48)
[2020-07-29] MEDS: glipiZIDE 5 MG TABLET PO SCH ×2 (06:44→16:46)
[2020-07-29 07:17] LABS: CARBON DIOXIDE 27 mmol/L (21-32); CHLORIDE 102 mmol/L (98-107); CREATININE 1.5 mg/dL (0.6-1.3); GLUCOSE 101 mg/dL (74-106); POTASSIUM 3.5 mmol/L (3.5-5.1)
[2020-07-29 07:30] LABS: UREA NITROGEN, BLOOD 14 mg/dL (7-18)
[2020-07-29 08:00] VITALS: BP 117/36
[2020-07-29] MEDS: LISINOPRIL 10 MG TABLET PO SCH (09:00)
[2020-07-29] MEDS: METOPROLOL TARTRATE 25 MG TABLET PO SCH ×2 (09:00→16:47)
[2020-07-29] MEDS: BENZTROPINE MESYLATE 0.5 MG TABLET PO SCH ×2 (09:02→16:45)
[2020-07-29] MEDS: HALOPERIDOL 5 MG TABLET PO SCH ×3 (09:02→16:46)
[2020-07-29] MEDS: FUROSEMIDE 20 MG TABLET PO SCH (09:02)
[2020-07-29] MEDS: CLOPIDOGREL 75 MG TABLET PO SCH (09:02)
[2020-07-29] MEDS: ASPIRIN 81 MG TAB.CHEW PO SCH (09:02)
[2020-07-29] MEDS: CLONAZEPAM 0.5 MG TABLET PO SCH ×3 (09:02→16:45)
[2020-07-29] MEDS: DIVALPROEX 500 MG TABLET.DR PO SCH ×3 (09:02→16:48)
[2020-07-29] MEDS: OLANZAPINE 5 MG TABLET PO SCH ×2 (09:03→16:45)
[2020-07-29] MEDS: CLOTRIMAZOLE/BETAMET DIPROP CREAM 15 GM TUBE TP SCH ×2 (09:03→21:34)
[2020-07-29] MEDS ORDERED: LORAZEPAM 2 MG/1 ML VIAL IM ONE ×2 (11:45→23:00)
[2020-07-29] MEDS ORDERED: diphenhydrAMINE 50 MG/1 ML VIAL IM ONE (11:45)
[2020-07-29] MEDS ORDERED: HALOPERIDOL LACTATE 5 MG/1 ML VIAL IM ONE ×2 (11:45→23:00)
[2020-07-29 12:00] VITALS: BP 120/57
[2020-07-29] MEDS: VANCOMYCIN IV 1,500 MG in IV DEXTROSE 5% 500 ML IV SCH (12:40)
[2020-07-29 16:00] VITALS: BP 128/60
[2020-07-29] MEDS: INSULIN REGULAR, HUMAN 300 UNIT/3 ML VIAL SQ PRN (16:50)
[2020-07-29] MEDS: CEFTRIAXONE 1 G in IV DEXTROSE 5% 50 ML IV SCH (20:50)
[2020-07-29] MEDS ORDERED: TAMSULOSIN HCL 0.4 MG CAP.SR.24H PO SCH (21:00)
[2020-07-29] MEDS: TAMSULOSIN HCL 0.4 MG CAP.SR.24H PO SCH (21:24)
[2020-07-29] MEDS: ATORVASTATIN 10 MG TABLET PO SCH (21:25)
[2020-07-29] MEDS: INSULIN GLARGINE,HUM 300 UNITS/3 ML CARTRIDGE SQ SCH (21:34)
[2020-07-29 22:00] VITALS: BP 151/58
[2020-07-29] MEDS ORDERED: BENZTROPINE MESYLATE 2 MG/2 ML AMPUL IM ONE (23:00)
[2020-07-29] MEDS ORDERED: BENZTROPINE MESYLATE 2 MG/2 ML AMPUL ONE (23:52)
[2020-07-30 01:00] VITALS: BP 155/66
[2020-07-30 04:53] VITALS: BP 149/63
[2020-07-30] MEDS: ACETAMINOPHEN 325 MG TABLET PO PRN ×3 (05:04→20:01)
[2020-07-30 07:01] LABS: BASOPHILS # (AUTO) 0.1 K/uL (0.0-8.0); BASOPHILS % (AUTO) 0.6 % (0.0-2.0); EOSINOPHILS # (AUTO) 0.4 K/uL (0.0-0.7); EOSINOPHILS % (AUTO) 4.2 % (0.0-7.0); HEMATOCRIT 35.9 % (36.7-47.1); HEMOGLOBIN 12.3 g/dL (12.5-16.3); LYMPHOCYTES # (AUTO) 1.6 K/uL (20.0-40.0); LYMPHOCYTES % (AUTO) 18.5 % (20.5-51.5); MEAN CORPUSCULAR HGB CONC 34 g/dL (32.5-36.3); MEAN CORPUSCULAR VOLUME 87.7 fL (73.0-96.2); MONOCYTES # (AUTO) 1.2 K/uL (2.0-10.0); MONOCYTES % (AUTO) 14.8 % (0.0-11.0); NEUTROPHILS # (AUTO) 5.2 K/uL (1.8-8.9); NEUTROPHILS % (AUTO) 61.9 % (38.5-71.5); PLATELET COUNT (AUTO) 290 K/uL (152-348); WHITE BLOOD COUNT (AUTO) 8.4 K/uL (3.6-10.2)
[2020-07-30 07:16] LABS: BILIRUBIN,TOTAL 0.3 mg/dL (0.2-1.0); CREATININE 1.2 mg/dL (0.6-1.3); MAGNESIUM 2.3 mg/dL (1.8-2.4); PHOSPHOROUS 6.3 mg/dL (2.5-4.9); POTASSIUM 4.2 mmol/L (3.5-5.1); TOTAL PROTEIN, SERUM 6.7 g/dL (6.4-8.2)
[2020-07-30 08:00] VITALS: BP 145/60
[2020-07-30] MEDS: CLONAZEPAM 0.5 MG TABLET PO SCH ×3 (09:03→17:11)
[2020-07-30] MEDS: CLOPIDOGREL 75 MG TABLET PO SCH (09:04)
[2020-07-30] MEDS: glipiZIDE 5 MG TABLET PO SCH ×2 (09:04→17:11)
[2020-07-30] MEDS: FUROSEMIDE 20 MG TABLET PO SCH (09:04)
[2020-07-30] MEDS: BENZTROPINE MESYLATE 0.5 MG TABLET PO SCH ×2 (09:04→17:11)
[2020-07-30] MEDS: DIVALPROEX 500 MG TABLET.DR PO SCH ×3 (09:04→17:11)
[2020-07-30] MEDS: CLOTRIMAZOLE/BETAMET DIPROP CREAM 15 GM TUBE TP SCH ×2 (09:04→20:44)
[2020-07-30] MEDS: METOPROLOL TARTRATE 25 MG TABLET PO SCH ×2 (09:04→17:00)
[2020-07-30] MEDS: ASPIRIN 81 MG TAB.CHEW PO SCH (09:04)
[2020-07-30] MEDS: LISINOPRIL 10 MG TABLET PO SCH (09:04)
[2020-07-30] MEDS: HALOPERIDOL 5 MG TABLET PO SCH ×3 (09:04→17:11)
[2020-07-30] MEDS: OLANZAPINE 5 MG TABLET PO SCH ×2 (09:04→17:11)
[2020-07-30] MEDS ORDERED: FUROSEMIDE 20 MG/2 ML VIAL IV ONE (10:00)
[2020-07-30] MEDS: VANCOMYCIN IV 1,500 MG in IV DEXTROSE 5% 500 ML IV SCH (10:56)
[2020-07-30 12:00] VITALS: BP 140/65
[2020-07-30] MEDS ORDERED: LORAZEPAM 2 MG/1 ML VIAL IV ONE (15:30)
[2020-07-30 16:15] VITALS: BP 107/50
[2020-07-30 20:00] VITALS: BP 129/99
[2020-07-30] MEDS: TAMSULOSIN HCL 0.4 MG CAP.SR.24H PO SCH (20:00)
[2020-07-30] MEDS: CEFTRIAXONE 1 G in IV DEXTROSE 5% 50 ML IV SCH (20:00)
[2020-07-30] MEDS: ATORVASTATIN 10 MG TABLET PO SCH (20:00)
[2020-07-30] MEDS: INSULIN GLARGINE,HUM 300 UNITS/3 ML CARTRIDGE SQ SCH (20:44)
[2020-07-30] MEDS: TEMAZEPAM 7.5 MG CAPSULE PO PRN (22:01)
[2020-07-30] MEDS: HALOPERIDOL LACTATE 5 MG/1 ML VIAL IV ONE ×2 (23:27→23:44)
[2020-07-31] MEDS: ACETAMINOPHEN 325 MG TABLET PO PRN ×2 (02:42→21:45)
[2020-07-31 04:00] VITALS: BP 110/48
[2020-07-31] MEDS ORDERED: QUETIAPINE FUMARATE 25 MG TABLET PO PRN (04:30)
[2020-07-31] MEDS: BENZTROPINE MESYLATE 0.5 MG TABLET PO SCH ×2 (08:37→16:06)
[2020-07-31] MEDS: FUROSEMIDE 20 MG TABLET PO SCH (08:37)
[2020-07-31] MEDS: METOPROLOL TARTRATE 25 MG TABLET PO SCH ×2 (08:37→16:06)
[2020-07-31] MEDS: ASPIRIN 81 MG TAB.CHEW PO SCH (08:37)
[2020-07-31] MEDS: glipiZIDE 5 MG TABLET PO SCH (08:37)
[2020-07-31] MEDS: CLONAZEPAM 0.5 MG TABLET PO SCH ×3 (08:37→16:06)
[2020-07-31] MEDS: OLANZAPINE 5 MG TABLET PO SCH ×2 (08:38→16:06)
[2020-07-31] MEDS: HALOPERIDOL 5 MG TABLET PO SCH ×3 (08:38→16:06)
[2020-07-31] MEDS: LISINOPRIL 10 MG TABLET PO SCH (08:38)
[2020-07-31] MEDS: DIVALPROEX 500 MG TABLET.DR PO SCH ×3 (08:38→16:06)
[2020-07-31] MEDS: CLOPIDOGREL 75 MG TABLET PO SCH (08:38)
[2020-07-31] MEDS: VANCOMYCIN IV 1,500 MG in IV DEXTROSE 5% 500 ML IV SCH (09:18)
[2020-07-31] MEDS: CLOTRIMAZOLE/BETAMET DIPROP CREAM 15 GM TUBE TP SCH ×2 (09:18→22:42)
[2020-07-31 12:00] VITALS: BP 126/64
[2020-07-31] MEDS ORDERED: HALOPERIDOL LACTATE 5 MG/1 ML VIAL IM ONE (12:00)
[2020-07-31] MEDS ORDERED: diphenhydrAMINE 50 MG/1 ML VIAL IV ONE (12:00)
[2020-07-31 16:00] VITALS: BP 138/61
[2020-07-31 19:47] VITALS: BP 132/76
[2020-07-31] MEDS ORDERED: INSULIN GLARGINE,HUM 300 UNITS/3 ML CARTRIDGE SQ SCH (21:00)
[2020-07-31] MEDS ORDERED: CEFTRIAXONE 2 G in IV DEXTROSE 5% 100 ML IV SCH (21:00)
[2020-07-31] MEDS: TAMSULOSIN HCL 0.4 MG CAP.SR.24H PO SCH (21:40)
[2020-07-31] MEDS: ATORVASTATIN 10 MG TABLET PO SCH (21:40)
[2020-07-31] MEDS: TEMAZEPAM 7.5 MG CAPSULE PO PRN (21:45)
[2020-08-01] MEDS ORDERED: OLANZAPINE 10 MG VIAL IM ONE (03:15)
[2020-08-01 04:00] VITALS: BP 149/58
[2020-08-01 06:21] LABS: BILIRUBIN,TOTAL 0.4 mg/dL (0.2-1.0); CREATININE 1.3 mg/dL (0.6-1.3); MAGNESIUM 1.9 mg/dL (1.8-2.4); PHOSPHOROUS 3.5 mg/dL (2.5-4.9); POTASSIUM 4.1 mmol/L (3.5-5.1); TOTAL PROTEIN, SERUM 6.3 g/dL (6.4-8.2)
[2020-08-01 06:30] LABS: BASOPHILS # (AUTO) 0.1 K/uL (0.0-8.0); BASOPHILS % (AUTO) 1.7 % (0.0-2.0); EOSINOPHILS # (AUTO) 0.4 K/uL (0.0-0.7); EOSINOPHILS % (AUTO) 5.8 % (0.0-7.0); HEMOGLOBIN 11.6 g/dL (12.5-16.3); LYMPHOCYTES # (AUTO) 1.5 K/uL (20.0-40.0); LYMPHOCYTES % (AUTO) 20.8 % (20.5-51.5); MEAN CORPUSCULAR HEMOGLOBIN 30.2 uug (23.8-33.4); MEAN CORPUSCULAR HGB CONC 34 g/dL (32.5-36.3); MEAN CORPUSCULAR VOLUME 88.3 fL (73.0-96.2); MONOCYTES % (AUTO) 13.8 % (0.0-11.0); NEUTROPHILS # (AUTO) 4.2 K/uL (1.8-8.9); NEUTROPHILS % (AUTO) 57.9 % (38.5-71.5); PLATELET COUNT (AUTO) 254 K/uL (152-348); RED BLOOD CELL COUNT(AUTO) 3.84 MIL/uL (4.06-5.63); WHITE BLOOD COUNT (AUTO) 7.2 K/uL (3.6-10.2)
[2020-08-01] MEDS: FUROSEMIDE 20 MG TABLET PO SCH (09:05)
[2020-08-01] MEDS: DIVALPROEX 500 MG TABLET.DR PO SCH ×2 (09:05→13:08)
[2020-08-01] MEDS: OLANZAPINE 5 MG TABLET PO SCH (09:05)
[2020-08-01] MEDS: BENZTROPINE MESYLATE 0.5 MG TABLET PO SCH (09:05)
[2020-08-01] MEDS: CLONAZEPAM 0.5 MG TABLET PO SCH ×2 (09:05→13:08)
[2020-08-01] MEDS: HALOPERIDOL 5 MG TABLET PO SCH ×2 (09:05→13:08)
[2020-08-01] MEDS: ASPIRIN 81 MG TAB.CHEW PO SCH (09:05)
[2020-08-01 09:11] VITALS: BP 138/55
[2020-08-01] MEDS: METOPROLOL TARTRATE 25 MG TABLET PO SCH (09:11)
[2020-08-01] MEDS: LISINOPRIL 10 MG TABLET PO SCH (09:11)
[2020-08-01] MEDS: CLOTRIMAZOLE/BETAMET DIPROP CREAM 15 GM TUBE TP SCH (09:11)
[2020-08-01] MEDS ORDERED: OLAN5TAB3 PO (12:54)
[2020-08-01] MEDS ORDERED: INSU100V28 SQ (12:54)
[2020-08-01] MEDS ORDERED: Insulin Glargine,Hum SQ (12:54)
[2020-08-01] MEDS ORDERED: ASPI81TA31 PO (17:02)
[2020-08-01] MEDS ORDERED: ACET-2154 PO (17:02)
== END 2020-08-01 15:30 | DRG 871 ==
LOC: MEDSURG3 16:43 → TELE3 16:45 → MEDSURG3 07-30 10:38
PROVIDERS: ADMIT Internal Medicine; ATTEND Nurse Practitioner Acute Care
PROC: 05H533Z Insertion of Infusion Device into Right Subclavian Vein, Percutaneous Approach (ICD-10-PCS; principal; 2020-07-28)
PROC: B546ZZA Ultrasonography of Right Subclavian Vein, Guidance (ICD-10-PCS; 2020-07-28)
DX: A41.9 Sepsis, unspecified organism (principal); N17.0 Acute kidney failure with tubular necrosis; I50.21 Acute systolic (congestive) heart failure; L03.116 Cellulitis of left lower limb; Z68.41 Body mass index [BMI] 40.0-44.9, adult; E22.2 Syndrome of inappropriate secretion of antidiuretic hormone; F01.51 Vascular dementia, unspecified severity, with behavioral disturbance; F05 Delirium due to known physiological condition; I11.0 Hypertensive heart disease with heart failure; E78.5 Hyperlipidemia, unspecified; F39 Unspecified mood [affective] disorder; I25.10 Atherosclerotic heart disease of native coronary artery without angina pectoris; Z79.82 Long term (current) use of aspirin; Z86.73 Personal history of transient ischemic attack (TIA), and cerebral infarction without residual deficits; E11.9 Type 2 diabetes mellitus without complications; E66.01 Morbid (severe) obesity due to excess calories; R33.9 Retention of urine, unspecified; N40.1 Benign prostatic hyperplasia with lower urinary tract symptoms; F29 Unspecified psychosis not due to a substance or known physiological condition; R31.9 Hematuria, unspecified; S61.411D Laceration without foreign body of right hand, subsequent encounter; X58.XXXD Exposure to other specified factors, subsequent encounter; S51.012D Laceration without foreign body of left elbow, subsequent encounter; Z79.4 Long term (current) use of insulin; Z20.822 Contact with and (suspected) exposure to COVID-19
CPT/HCPCS: 36415; 71045; 83735; 84100; 85025; 87086; 93307; A4217; A4663; G0378; J0515; J0696; J1200; J1630; J1815; J1940; J2060; J2358; J3370; J7040; J7060

== ENCOUNTER 2020-08-01 16:09 | Inpatient (IN) | payer MEDICARE, OTHER ==
[~2020-08-01] VITALS: Ht 167.6 cm; Wt 103.0 kg
[~2020-08-01 16:09] MED LIST changes: -ASPI-1094 PO; +ATOR10TA PO; -ATOR20TA PO; +BENZ0.5T43 PO; +BLOO-1672 MC; +CLON0.5T4 PO; +CLOT15CR5 TP; +DEXT50DI8 IV; -DEXT50VI3 IV; +DIVA500T2 PO; +FURO20TA4 PO; +GLIP5TAB13 PO; +HALO5TAB PO; +INSU100V28 SQ; +Insulin Glargine,Hum SQ; +LINE600T15 PO; -MAG-55 PO; +MAG355OR18 PO; +OLAN5TAB3 PO; +OLAN5TAB30 PO; +TEMA7.5C PO
[2020-08-01 16:30] VITALS: BP 145/60
[2020-08-01] MEDS ORDERED: ASPI81TA31 PO (17:02)
[2020-08-01] MEDS ORDERED: ACET-2154 PO (17:02)
--- NOTE | 2020-08-01 17:15 | NUR ---
ADMISSION NOTE: Patient admitted to MHU Room 139-A from Med-Surg unit accompanied by nursing staff and brought in on hospital bed. Patient provided with education and oriented to the unit and to his room. Provided with a patient's rights handbook. Skin assessment completed by RN, redness noted on Left calf. Patient's belongings and valuables inventoried. Patient's personal ring is in the hospital safe, per nursing liquor stores and agencies supervisor. Upon [id number] assessment, patient is uncooperative, anxious, and resistive to care. He easily becomes angry and agitated. Patient is alert to only his name. He is disheveled and wearing a hospital gown. Patient is unable to maintain a linear and logical conversation with this medical writer. Patient is ambulatory with maximum assistance from staff. Patient requires assistance with self care and ADL's. Patient provided with education about impulse control and how to communicate needs appropriately to staff.
[2020-08-01] MEDS ORDERED: MAG HYDROX/AL HYDROX/SIMETH 30 ML LIQUID UDC PO PRN (18:00)
[2020-08-01] MEDS ORDERED: TEMAZEPAM 7.5 MG CAPSULE PO PRN (18:00)
[2020-08-01] MEDS ORDERED: MAGNESIUM HYDROXIDE 30 ML LIQUID UDC PO PRN (18:00)
[2020-08-01] MEDS ORDERED: LORAZEPAM 1 MG TABLET PO PRN (18:00)
[2020-08-01 20:33] VITALS: BP 129/64
--- NOTE | 2020-08-01 22:21 | NUR ---
GPS: Pt.unable to void up to now. Denies pain/discomfort. Pt.has hx of urinary retention. F/C was just discontinued hours ago prior to coming down to mhu from med.surg floor. Bladder scan shows [address] Sequeira made aware with orders,carried-out. F/C FR 16 inserted and jose antonio.procedure well. Voiding yellow colored urine. Will continue to monitor.
[2020-08-01] MEDS ORDERED: INSULIN REGULAR, HUMAN 300 UNIT/3 ML VIAL SQ PRN (22:30)
[2020-08-01] MEDS ORDERED: ACETAMINOPHEN 325 MG TABLET PO PRN (22:30)
[2020-08-02 07:30] VITALS: BP 140/70
[2020-08-02] MEDS ORDERED: DEXTROSE 50% 50 ML DISP.SYRIN IV PRN (08:00)
[2020-08-02] MEDS ORDERED: LINEZOLID 600 MG TABLET PO SCH (09:00)
[2020-08-02] MEDS: ASPIRIN 81 MG TAB.CHEW PO SCH (10:08)
[2020-08-02] MEDS: POTASSIUM CHLORIDE 20 MEQ TAB.PRT.SR PO SCH (10:08)
[2020-08-02] MEDS: FUROSEMIDE 20 MG TABLET PO SCH (10:09)
[2020-08-02] MEDS: LISINOPRIL 10 MG TABLET PO SCH (10:09)
[2020-08-02] MEDS: METOPROLOL TARTRATE 25 MG TABLET PO SCH ×2 (10:09→17:28)
[2020-08-02] MEDS: CLOPIDOGREL 75 MG TABLET PO SCH (10:09)
[2020-08-02] MEDS: glipiZIDE 5 MG TABLET PO SCH ×2 (10:09→17:28)
[2020-08-02] MEDS: BLOOD SUGAR DIAGNOSTIC 1 EACH STRIP VI SCH ×4 (10:10→21:01)
[2020-08-02] MEDS: DIVALPROEX 500 MG TABLET.DR PO SCH ×3 (10:15→17:28)
[2020-08-02] MEDS: CLOTRIMAZOLE/BETAMET DIPROP CREAM 15 GM TUBE TP SCH ×2 (10:15→18:35)
[2020-08-02] MEDS: CLONAZEPAM 0.5 MG TABLET PO SCH ×3 (10:15→17:28)
[2020-08-02] MEDS: INSULIN REGULAR, HUMAN 300 UNIT/3 ML VIAL SQ PRN ×3 (10:25→17:36)
--- NOTE | 2020-08-02 10:36 | NUR ---
BARRINGTON Family Contact: BARRINGTON spoke with patients , Kaitlynn ([phone]) who is involved in the patients care and discussed treatment and discharge plan.
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
--- NOTE | 2020-08-02 10:37 | NUR ---
BARR[facility] Initial Discharge Plan: BARRINGTON spoke with Gabi from [facility] ([phone]) who stated that the patient is welcome back to the facility once stable at the hospital. BARRINGTON also spoke with Vel from [facility] ([phone]) who stated that patient is welcome upon discharge. Patient is also accepted at [facility], confirmed with Branden ([phone]).
--- NOTE | 2020-08-02 10:39 | NUR ---
Firearms Report: Renewable Energy Project Manager completed and submitted a [employer] firearms report for 5270 grave disability certifications. A copy of report has been placed in patient chart.
--- NOTE | 2020-08-02 11:36 | NUR ---
WOUND CARE CONSULT: LIMITED ASSESSMENT TODAY DUE TO PT AGITATED AND SCREAMING. LEFT LOWER LEG NOTED TO HAVE RAISED RED AREA WITH EDEMA, PRESENT ON ADMISSION. ADMISSION PHOTO ALSO INDICATES REDNESS/RASH TO GROIN/PERINEAL AREAS, PRESENT ON ADMISSION. LOTRIMIN IS IN USE. RECOMMEND DPM CONSULT. DR GEORGE NOTIFIED. SKIN PROTECTION RECOMMENDATIONS DISCUSSED WITH NURSING STAFF. MD IN AGREEMENT WITH PLAN OF CARE.
[2020-08-02] MEDS ORDERED: Z GUARD REMEDY PASTE 57 GM TUBE TOP PRN (11:45)
[2020-08-02] MEDS: chlorproMAZINE 25 MG TABLET PO SCH ×3 (12:01→20:58)
[2020-08-02] MEDS: HYDROXYZINE PAMOATE 25 MG CAPSULE PO PRN (13:13)
[2020-08-02 16:00] VITALS: BP 124/61
[2020-08-02] MEDS: MELATONIN 3 MG TABLET PO SCH (20:58)
[2020-08-02] MEDS: TAMSULOSIN HCL 0.4 MG CAP.SR.24H PO SCH (20:58)
[2020-08-02] MEDS: ATORVASTATIN 10 MG TABLET PO SCH (20:58)
[2020-08-02] MEDS: INSULIN GLARGINE,HUM 300 UNITS/3 ML CARTRIDGE SQ SCH (20:59)
[2020-08-02] MEDS: INSULIN REGULAR, HUMAN 300 UNITS/3 ML VIAL SQ PRN (21:00)
[2020-08-02] MEDS: Z GUARD REMEDY PASTE 57 GM TUBE TOP SCH (21:02)
[2020-08-02 21:04] VITALS: BP 125/69
--- NOTE | 2020-08-02 22:00 | NUR ---
Received patient in edy chair, awake, confused, responsive to interaction. No episode of agitation or anger outburst. No episode of cursing or of foul language. Patient with cowart intact, draining blood-tinged urine with some clots. Patient received due medications, tolerated well. Fall and safety precautions observed. Will continue to monitor patient.
[2020-08-03] MEDS: glipiZIDE 5 MG TABLET PO SCH ×2 (06:36→16:52)
[2020-08-03] MEDS: BLOOD SUGAR DIAGNOSTIC 1 EACH STRIP VI SCH ×4 (06:37→20:10)
[2020-08-03 07:30] VITALS: BP 124/61
[2020-08-03] MEDS: INSULIN REGULAR, HUMAN 300 UNIT/3 ML VIAL SQ PRN ×4 (08:30→20:24)
[2020-08-03] MEDS: ASPIRIN 81 MG TAB.CHEW PO SCH (09:43)
[2020-08-03] MEDS: POTASSIUM CHLORIDE 20 MEQ TAB.PRT.SR PO SCH (09:43)
[2020-08-03] MEDS: CLONAZEPAM 0.5 MG TABLET PO SCH (09:43)
[2020-08-03] MEDS: chlorproMAZINE 25 MG TABLET PO SCH ×4 (09:43→20:22)
[2020-08-03] MEDS: LISINOPRIL 10 MG TABLET PO SCH (09:44)
[2020-08-03] MEDS: DIVALPROEX 500 MG TABLET.DR PO SCH ×3 (09:44→16:52)
[2020-08-03] MEDS: METOPROLOL TARTRATE 25 MG TABLET PO SCH ×2 (09:44→16:53)
[2020-08-03] MEDS: FUROSEMIDE 20 MG TABLET PO SCH (09:44)
[2020-08-03] MEDS: CLOPIDOGREL 75 MG TABLET PO SCH (09:44)
[2020-08-03] MEDS: CLOTRIMAZOLE/BETAMET DIPROP CREAM 15 GM TUBE TP SCH ×2 (09:45→17:03)
[2020-08-03] MEDS: Z GUARD REMEDY PASTE 57 GM TUBE TOP SCH ×2 (09:45→20:23)
--- NOTE | 2020-08-03 09:58 | NUR ---
BARRINGTON GHOSH Hearing: Patient had probable cause hearing today for 30-day hold (8362) and it was upheld for grave disability.
[2020-08-03] MEDS: DOXYCYCLINE HYCLATE 100 MG TABLET PO SCH ×2 (15:32→23:00)
[2020-08-03 16:00] VITALS: BP 120/59
[2020-08-03 20:15] VITALS: BP 124/67
[2020-08-03] MEDS: ATORVASTATIN 10 MG TABLET PO SCH (20:21)
[2020-08-03] MEDS: MELATONIN 3 MG TABLET PO SCH (20:21)
[2020-08-03] MEDS: TAMSULOSIN HCL 0.4 MG CAP.SR.24H PO SCH (20:21)
[2020-08-03] MEDS: INSULIN GLARGINE,HUM 300 UNITS/3 ML CARTRIDGE SQ SCH (20:23)
[2020-08-03] MEDS: CLONAZEPAM 0.5 MG TABLET PO PRN (22:05)
[2020-08-04] MEDS: BLOOD SUGAR DIAGNOSTIC 1 EACH STRIP VI SCH ×4 (06:24→20:09)
[2020-08-04 07:30] VITALS: BP 104/53
[2020-08-04 08:08] LABS: BASOPHILS # (AUTO) 0.1 K/uL (0.0-8.0); BASOPHILS % (AUTO) 0.9 % (0.0-2.0); EOSINOPHILS # (AUTO) 0.5 K/uL (0.0-0.7); EOSINOPHILS % (AUTO) 6.6 % (0.0-7.0); HEMOGLOBIN 11.7 g/dL (12.5-16.3); LYMPHOCYTES # (AUTO) 1.6 K/uL (20.0-40.0); MEAN CORPUSCULAR HEMOGLOBIN 29.5 uug (23.8-33.4); MEAN CORPUSCULAR HGB CONC 34 g/dL (32.5-36.3); MEAN CORPUSCULAR VOLUME 88.3 fL (73.0-96.2); MONOCYTES % (AUTO) 13.2 % (0.0-11.0); NEUTROPHILS # (AUTO) 4.5 K/uL (1.8-8.9); NEUTROPHILS % (AUTO) 58.3 % (38.5-71.5); PLATELET COUNT (AUTO) 243 K/uL (152-348); RED BLOOD CELL COUNT(AUTO) 3.97 MIL/uL (4.06-5.63); WHITE BLOOD COUNT (AUTO) 7.7 K/uL (3.6-10.2)
[2020-08-04 08:13] LABS: CREATININE 1.2 mg/dL (0.6-1.3); POTASSIUM 3.9 mmol/L (3.5-5.1)
[2020-08-04] MEDS: Z GUARD REMEDY PASTE 57 GM TUBE TOP SCH ×2 (08:21→21:16)
[2020-08-04] MEDS: CLOPIDOGREL 75 MG TABLET PO SCH (08:22)
[2020-08-04] MEDS: CLOTRIMAZOLE/BETAMET DIPROP CREAM 15 GM TUBE TP SCH ×2 (08:22→16:27)
[2020-08-04] MEDS: chlorproMAZINE 25 MG TABLET PO SCH ×4 (08:22→20:10)
[2020-08-04] MEDS: ASPIRIN 81 MG TAB.CHEW PO SCH (08:22)
[2020-08-04] MEDS: FUROSEMIDE 20 MG TABLET PO SCH (08:23)
[2020-08-04] MEDS: METOPROLOL TARTRATE 25 MG TABLET PO SCH ×2 (08:23→16:26)
[2020-08-04] MEDS: POTASSIUM CHLORIDE 20 MEQ TAB.PRT.SR PO SCH (08:23)
[2020-08-04] MEDS: DOXYCYCLINE HYCLATE 100 MG TABLET PO SCH ×2 (08:23→20:09)
[2020-08-04] MEDS: LISINOPRIL 10 MG TABLET PO SCH (08:23)
[2020-08-04] MEDS: glipiZIDE 5 MG TABLET PO SCH ×2 (08:23→16:25)
[2020-08-04] MEDS: DIVALPROEX 500 MG TABLET.DR PO SCH ×3 (08:23→16:25)
[2020-08-04] MEDS: INSULIN REGULAR, HUMAN 300 UNIT/3 ML VIAL SQ PRN ×2 (12:14→16:28)
[2020-08-04 15:04] VITALS: BP 110/65
--- NOTE | 2020-08-04 17:11 | NUR ---
RECEIVED PATIENT AOX1-2, ON CHRIS CATHETER ATTACHED WITH COLLECTING BAG, URINE IN TEA COLORED URINE, MD, AWARE OF THE URINE COLOR, PATIENT CALM , COOPERATIVE, COMPLIANT WITH MEDICATION, NEEDS CONSTANT REORIENTATION ABOUT SITUATION, PATIENT TOOK SHOWER, PATIENT ON MONITORING FOR SAFETY, NO SIGN OF DISTRESS, WITH ACCUCHECK MONITORED AND INSULIN GIVEN NEEDED, ATTENDED PATIENTS NEED , WILL CONTINUE MONITOR
[2020-08-04] MEDS: HYDROXYZINE PAMOATE 25 MG CAPSULE PO PRN (18:42)
[2020-08-04] MEDS: ATORVASTATIN 10 MG TABLET PO SCH (20:09)
[2020-08-04] MEDS: MELATONIN 3 MG TABLET PO SCH (20:09)
[2020-08-04] MEDS: TAMSULOSIN HCL 0.4 MG CAP.SR.24H PO SCH (20:10)
[2020-08-04 20:11] VITALS: BP 121/63
[2020-08-04] MEDS: INSULIN GLARGINE,HUM 300 UNITS/3 ML CARTRIDGE SQ SCH (20:12)
[2020-08-04] MEDS: INSULIN REGULAR, HUMAN 300 UNITS/3 ML VIAL SQ PRN (20:14)
[2020-08-04] MEDS: CLONAZEPAM 0.5 MG TABLET PO PRN (22:02)
--- NOTE | 2020-08-05 05:54 | NUR ---
Received patient up in edy chair at the beginning of the shift. Patient calm and confused. Pappas catheter in place. Hematuria noted. Patient reoriented many times with little effect. PM medication given and patient put in bed. Total sleep hours are 7.30. Katelyn care provided and patient repositioned during the night for comfort. PO fluids encouraged. Continuing to monitor for safety and for behavior escalation. No acute distress noted at this time.
[2020-08-05] MEDS: BLOOD SUGAR DIAGNOSTIC 1 EACH STRIP VI SCH ×4 (06:24→20:03)
[2020-08-05 07:30] VITALS: BP 119/59
--- NOTE | 2020-08-05 07:30 | NUR ---
patient AOx2-3, calm cooperative, with cowart cath attach to urine bag, with tea colored urine, patient VS WNL, blood sugar monitoring, with insulin given , patient denies SI and HI, patient was monitoring for safety, assisted with ADLs, no sign of distress at this time
[2020-08-05] MEDS: glipiZIDE 5 MG TABLET PO SCH ×2 (07:56→16:03)
[2020-08-05] MEDS: INSULIN REGULAR, HUMAN 300 UNITS/3 ML VIAL SQ PRN ×2 (07:59→20:10)
[2020-08-05] MEDS: FUROSEMIDE 20 MG TABLET PO SCH (08:15)
[2020-08-05] MEDS: CLOPIDOGREL 75 MG TABLET PO SCH (08:15)
[2020-08-05] MEDS: DIVALPROEX 500 MG TABLET.DR PO SCH ×3 (08:15→16:03)
[2020-08-05] MEDS: ASPIRIN 81 MG TAB.CHEW PO SCH (08:15)
[2020-08-05] MEDS: chlorproMAZINE 25 MG TABLET PO SCH ×4 (08:15→20:04)
[2020-08-05] MEDS: POTASSIUM CHLORIDE 20 MEQ TAB.PRT.SR PO SCH (08:17)
[2020-08-05] MEDS: DOXYCYCLINE HYCLATE 100 MG TABLET PO SCH ×2 (08:18→20:04)
[2020-08-05] MEDS: METOPROLOL TARTRATE 25 MG TABLET PO SCH ×2 (08:48→16:03)
[2020-08-05] MEDS: LISINOPRIL 10 MG TABLET PO SCH (08:49)
[2020-08-05] MEDS: Z GUARD REMEDY PASTE 57 GM TUBE TOP SCH ×2 (08:57→20:06)
[2020-08-05] MEDS: CLOTRIMAZOLE/BETAMET DIPROP CREAM 15 GM TUBE TP SCH ×2 (08:58→16:04)
[2020-08-05] MEDS: INSULIN REGULAR, HUMAN 300 UNIT/3 ML VIAL SQ PRN ×3 (09:32→16:18)
[2020-08-05 16:00] VITALS: BP 149/75
--- NOTE | 2020-08-05 18:59 | NUR ---
patient assisted with ambulation, patient urine output is at 2000ml, tea colored, patient denies any discomfort, no sign of distress
[2020-08-05 20:00] VITALS: BP 151/54
[2020-08-05] MEDS: TAMSULOSIN HCL 0.4 MG CAP.SR.24H PO SCH (20:03)
[2020-08-05] MEDS: CLONAZEPAM 0.5 MG TABLET PO PRN (20:04)
[2020-08-05] MEDS: MELATONIN 3 MG TABLET PO SCH (20:04)
[2020-08-05] MEDS: ATORVASTATIN 10 MG TABLET PO SCH (20:04)
[2020-08-05] MEDS: INSULIN GLARGINE,HUM 300 UNITS/3 ML CARTRIDGE SQ SCH (20:06)
[2020-08-06] MEDS: HYDROXYZINE PAMOATE 25 MG CAPSULE PO PRN (01:13)
[2020-08-06] MEDS: ACETAMINOPHEN 325 MG TABLET PO PRN ×2 (01:13→20:09)
[2020-08-06] MEDS: BLOOD SUGAR DIAGNOSTIC 1 EACH STRIP VI SCH ×4 (05:43→20:09)
--- NOTE | 2020-08-06 06:10 | NUR ---
Patient was received in a Crista chair last night. Calm, alert and oriented x1 only. Snack provided with fluids. Patient still has a Pappas catheter, hematuria noted. Hgb is 11.0 at this time. Deck Specialist ambulated patient with a FWW to his room when it was time for bed. A couple of times during the night the patient yelled out and tried to get out of the bed. Staff monitored patient closely for safety and were able to reorient patient for the moment. Total sleep hours last night were 7.15. Patient up early this am and back in Crista chair at the nurses station. No behavior escalation or aggression noted during the shift.
[2020-08-06 07:30] VITALS: BP 116/57
[2020-08-06] MEDS: CLOTRIMAZOLE/BETAMET DIPROP CREAM 15 GM TUBE TP SCH ×2 (08:12→16:03)
[2020-08-06] MEDS: CLOPIDOGREL 75 MG TABLET PO SCH (08:13)
[2020-08-06] MEDS: Z GUARD REMEDY PASTE 57 GM TUBE TOP SCH ×2 (08:13→20:09)
[2020-08-06] MEDS: DOXYCYCLINE HYCLATE 100 MG TABLET PO SCH ×2 (08:13→20:10)
[2020-08-06] MEDS: METOPROLOL TARTRATE 25 MG TABLET PO SCH ×2 (08:13→16:01)
[2020-08-06] MEDS: FUROSEMIDE 20 MG TABLET PO SCH (08:13)
[2020-08-06] MEDS: DIVALPROEX 500 MG TABLET.DR PO SCH ×3 (08:13→16:01)
[2020-08-06] MEDS: LISINOPRIL 10 MG TABLET PO SCH (08:13)
[2020-08-06] MEDS: ASPIRIN 81 MG TAB.CHEW PO SCH (08:13)
[2020-08-06] MEDS: POTASSIUM CHLORIDE 20 MEQ TAB.PRT.SR PO SCH (08:13)
[2020-08-06] MEDS: glipiZIDE 5 MG TABLET PO SCH ×2 (08:13→16:01)
[2020-08-06] MEDS: chlorproMAZINE 25 MG TABLET PO SCH ×4 (08:23→20:10)
[2020-08-06] MEDS: INSULIN REGULAR, HUMAN 300 UNIT/3 ML VIAL SQ PRN ×2 (11:21→16:20)
[2020-08-06 16:00] VITALS: BP 106/65
[2020-08-06 20:08] VITALS: BP 108/56
[2020-08-06] MEDS: TAMSULOSIN HCL 0.4 MG CAP.SR.24H PO SCH (20:09)
[2020-08-06] MEDS: MELATONIN 3 MG TABLET PO SCH (20:10)
[2020-08-06] MEDS: ATORVASTATIN 10 MG TABLET PO SCH (20:10)
[2020-08-06] MEDS: INSULIN GLARGINE,HUM 300 UNITS/3 ML CARTRIDGE SQ SCH (20:11)
[2020-08-06] MEDS: INSULIN REGULAR, HUMAN 300 UNITS/3 ML VIAL SQ PRN (20:14)
[2020-08-06] MEDS: CLONAZEPAM 0.5 MG TABLET PO PRN (21:02)
[2020-08-07 03:39] LABS: *BILIRUBIN,URIN NEGATIVE (NEGATIVE); *BLOOD, URINE 3+ (NEGATIVE); *CLARITY,URINE SLIGHTLY CLOUDY (CLEAR); *COLOR,URINE YELLOW (YELLOW); *KETONES,URINE TRACE (NEGATIVE); *UROBILINOGEN,URINE 0.2 E.U./dl (NORMAL); LEUKOCYTE ESTERASE ,URINE NEGATIVE (NEGATIVE); NITRITE, URINE NEGATIVE (NEGATIVE); PH,URINE 6.5 (5.0-8.0); UGLUCOSE NEGATIVE (NEGATIVE)
[2020-08-07 03:47] LABS: *CREATININE,URINE 95.1 mg/dL (30-125); *URINE TOTAL PROTEIN RANDOM 40.2 mg/dL (<150/24HR)
[2020-08-07 03:53] LABS: RBC,URINE TNTC /HPF (0-3)
[2020-08-07 03:55] LABS: BACTERIA,URINE NONE SEEN /HPF (NONE SEEN); SQUAMOUS EPITHELIAL CELL,UR NONE SEEN /HPF (NONE SEEN)
--- NOTE | 2020-08-07 06:04 | NUR ---
No changes with the patient from the previous night , except patients no longer has hematuria in the Pappas catheter A UA was sent to the lab per order. Total sleep was 7.30. Patient remains compliant with medications and no behavior escalation was noted during the shift. Continuing to reorient patient when needed and monitor for safety.
[2020-08-07] MEDS: BLOOD SUGAR DIAGNOSTIC 1 EACH STRIP VI SCH ×4 (06:11→20:19)
[2020-08-07 07:23] LABS: BASOPHILS # (AUTO) 0.1 K/uL (0.0-8.0); BASOPHILS % (AUTO) 1.3 % (0.0-2.0); EOSINOPHILS # (AUTO) 0.6 K/uL (0.0-0.7); EOSINOPHILS % (AUTO) 8.4 % (0.0-7.0); HEMOGLOBIN 11.9 g/dL (12.5-16.3); LYMPHOCYTES # (AUTO) 1.8 K/uL (20.0-40.0); LYMPHOCYTES % (AUTO) 24.6 % (20.5-51.5); MEAN CORPUSCULAR HEMOGLOBIN 29.3 uug (23.8-33.4); MEAN CORPUSCULAR HGB CONC 33 g/dL (32.5-36.3); MEAN CORPUSCULAR VOLUME 88.2 fL (73.0-96.2); MONOCYTES % (AUTO) 13.6 % (0.0-11.0); NEUTROPHILS # (AUTO) 3.7 K/uL (1.8-8.9); NEUTROPHILS % (AUTO) 52.1 % (38.5-71.5); PLATELET COUNT (AUTO) 245 K/uL (152-348); RED BLOOD CELL COUNT(AUTO) 4.08 MIL/uL (4.06-5.63); WHITE BLOOD COUNT (AUTO) 7.2 K/uL (3.6-10.2)
[2020-08-07 07:30] VITALS: BP 151/67
[2020-08-07 07:45] LABS: CREATININE 1.3 mg/dL (0.6-1.3); POTASSIUM 4.4 mmol/L (3.5-5.1)
[2020-08-07] MEDS: ASPIRIN 81 MG TAB.CHEW PO SCH (08:13)
[2020-08-07] MEDS: DOXYCYCLINE HYCLATE 100 MG TABLET PO SCH ×2 (08:13→20:19)
[2020-08-07] MEDS: CLOPIDOGREL 75 MG TABLET PO SCH (08:14)
[2020-08-07] MEDS: POTASSIUM CHLORIDE 20 MEQ TAB.PRT.SR PO SCH (08:14)
[2020-08-07] MEDS: DIVALPROEX 500 MG TABLET.DR PO SCH ×3 (08:14→16:55)
[2020-08-07] MEDS: LISINOPRIL 10 MG TABLET PO SCH (08:14)
[2020-08-07] MEDS: glipiZIDE 5 MG TABLET PO SCH ×2 (08:14→16:55)
[2020-08-07] MEDS: METOPROLOL TARTRATE 25 MG TABLET PO SCH ×2 (08:14→16:28)
[2020-08-07] MEDS: FUROSEMIDE 20 MG TABLET PO SCH (08:14)
[2020-08-07] MEDS: chlorproMAZINE 25 MG TABLET PO SCH ×4 (08:14→20:20)
[2020-08-07] MEDS: Z GUARD REMEDY PASTE 57 GM TUBE TOP SCH ×2 (08:15→20:25)
[2020-08-07] MEDS: CLOTRIMAZOLE/BETAMET DIPROP CREAM 15 GM TUBE TP SCH ×2 (08:16→16:56)
[2020-08-07] MEDS: INSULIN REGULAR, HUMAN 300 UNIT/3 ML VIAL SQ PRN ×2 (12:24→17:45)
[2020-08-07 15:09] LABS: LYMPHOCYTES % (MANUAL) 27 % (20-40); MONOCYTES % (MANUAL) 13 % (2-10); NEUTROPHILS % (MANUAL) 48 % (42-75)
[2020-08-07 15:10] LABS: EOSINOPHILS % (MANUAL) 12 % (0-8)
[2020-08-07 15:28] VITALS: BP 112/61
--- NOTE | 2020-08-07 18:13 | NUR ---
patient is alert to name only. patient requires constant redirection and reality orientation to place, time, and situation. patient is cooperative and redirectable. patient is adherent with prescribed medication, no adverse reaction noted. patient denies SI/HI, denies AH/VH. he has periods of agitation and increased confusion but he is redirectable. patient's cowart catheter is intact, noted with light pink hematuria. patient requires assistance with feeding and hydrating but is able to be independent after staff sets up meal trays for him.
[2020-08-07 20:17] VITALS: BP 138/60
[2020-08-07] MEDS: HYDROXYZINE PAMOATE 25 MG CAPSULE PO PRN (20:19)
[2020-08-07] MEDS: ATORVASTATIN 10 MG TABLET PO SCH (20:20)
[2020-08-07] MEDS: MELATONIN 3 MG TABLET PO SCH (20:20)
[2020-08-07] MEDS: TAMSULOSIN HCL 0.4 MG CAP.SR.24H PO SCH (20:20)
[2020-08-07] MEDS: INSULIN GLARGINE,HUM 300 UNITS/3 ML CARTRIDGE SQ SCH (20:24)
[2020-08-07] MEDS: INSULIN REGULAR, HUMAN 300 UNITS/3 ML VIAL SQ PRN (20:26)
[2020-08-07] MEDS: ACETAMINOPHEN 325 MG TABLET PO PRN (22:25)
[2020-08-07] MEDS: CLONAZEPAM 0.5 MG TABLET PO PRN (22:25)
--- NOTE | 2020-08-08 05:57 | NUR ---
Patient slept 6.00 hours last night. At one point, patient got out of bed on his own, unsteady and confused and stated he was looking for his shoes. Reorientation provided and after some time patient went back to bed. Patient to be discharged today to a SNF with the Pappas catheter. Patient was however able to remember he was leaving soon. Continuing to monitor patient for safety and assist with any needs that may arise until time of discharge.
[2020-08-08] MEDS: BLOOD SUGAR DIAGNOSTIC 1 EACH STRIP VI SCH ×2 (06:23→11:35)
[2020-08-08 07:30] VITALS: BP 117/55
[2020-08-08] MEDS: CLOPIDOGREL 75 MG TABLET PO SCH (08:29)
[2020-08-08] MEDS: FUROSEMIDE 20 MG TABLET PO SCH (08:29)
[2020-08-08] MEDS: POTASSIUM CHLORIDE 20 MEQ TAB.PRT.SR PO SCH (08:29)
[2020-08-08] MEDS: chlorproMAZINE 25 MG TABLET PO SCH ×2 (08:29→12:32)
[2020-08-08] MEDS: DIVALPROEX 500 MG TABLET.DR PO SCH ×2 (08:29→12:33)
[2020-08-08] MEDS: ASPIRIN 81 MG TAB.CHEW PO SCH (08:29)
[2020-08-08] MEDS: METOPROLOL TARTRATE 25 MG TABLET PO SCH (08:30)
[2020-08-08 08:31] VITALS: BP 117/55
[2020-08-08] MEDS: LISINOPRIL 10 MG TABLET PO SCH (08:31)
[2020-08-08] MEDS: glipiZIDE 5 MG TABLET PO SCH (08:32)
[2020-08-08] MEDS: CLOTRIMAZOLE/BETAMET DIPROP CREAM 15 GM TUBE TP SCH (08:33)
[2020-08-08] MEDS: Z GUARD REMEDY PASTE 57 GM TUBE TOP SCH (08:33)
--- NOTE | 2020-08-08 09:06 | NUR ---
Discharge Note: [place] [facility] [place] [facility] [place] [facility] [address] [place] [address] ([phone]) via ambulance. Patient will be transported via ambulance at 11am. Spoke with Gabi medical review coordinator at the facility who states they are ready to accept the patient today. Patient will follow-up at the facility with Dr. Ann Front End Developer and Dr. Minor Psychiatrist. Patient is alert and oriented times 3, denies suicidal or homicidal ideation, and is aware and agreeable with discharge plans. Patient presents with appropriate mood and congruent affect. Patient is unable to plan for self-care at this time, however, is willing to accept care provided at the facility. Patients , Kaitlynn Garcia ([phone]) is aware and agreeable with discharge plans.
[2020-08-08] MEDS: INSULIN REGULAR, HUMAN 300 UNIT/3 ML VIAL SQ PRN (11:40)
--- NOTE | 2020-08-08 13:47 | NUR ---
Patient discharge around 130pm in stable condition via ambulance in stretcher with 3 EMT.Patient is calm during conversation with staff and EMT. no agitation noted. Patient will be discharged back to [facility]-term [facility], [address] [address]. Patient will follow-up at the facility with Dr. Ann Automatic Casting Machine Operator and Dr. Minor Psychiatrist. Patient is alert and oriented times 3, denies suicidal or homicidal ideation, and is aware and agreeable with discharge plans. Patient presents with appropriate mood and congruent affect. Patient is unable to plan for self-care at this time. Patients , Kaitlynn Garcia ([phone]) is aware and agreeable with discharge plans. MD notified regarding discharge.
== END 2020-08-08 14:00 | DRG 885 ==
LOC: GPS 16:09
PROVIDERS: ADMIT Psychiatry & Neurology Psychiatry; ATTEND Nurse Practitioner Acute Care
DX: F29 Unspecified psychosis not due to a substance or known physiological condition (principal); I11.0 Hypertensive heart disease with heart failure; N17.0 Acute kidney failure with tubular necrosis; L03.116 Cellulitis of left lower limb; D68.69 Other thrombophilia; F23 Brief psychotic disorder; F03.91 Unspecified dementia, unspecified severity, with behavioral disturbance; G93.40 Encephalopathy, unspecified; E22.2 Syndrome of inappropriate secretion of antidiuretic hormone; F25.0 Schizoaffective disorder, bipolar type; E78.5 Hyperlipidemia, unspecified; E66.01 Morbid (severe) obesity due to excess calories; E11.42 Type 2 diabetes mellitus with diabetic polyneuropathy; F32.9 Major depressive disorder, single episode, unspecified; I25.10 Atherosclerotic heart disease of native coronary artery without angina pectoris; I50.9 Heart failure, unspecified; N40.0 Benign prostatic hyperplasia without lower urinary tract symptoms; F39 Unspecified mood [affective] disorder; S51.012D Laceration without foreign body of left elbow, subsequent encounter; S61.411D Laceration without foreign body of right hand, subsequent encounter; X58.XXXD Exposure to other specified factors, subsequent encounter; Z68.36 Body mass index [BMI] 36.0-36.9, adult; Z20.822 Contact with and (suspected) exposure to COVID-19; Z79.84 Long term (current) use of oral hypoglycemic drugs
CPT/HCPCS: 36415; 70030-TC; 73700; 80164; 84156; 84300; 85025; 85651; 86140; 87086; 93005; J1815; Q0161